=== PATIENT | male | born 1975 | race Caucasian/White ===

== ENCOUNTER 2020-11-06 06:40 | Emergency (ER) | payer OTHER, MEDICAID, SELFPAY ==
[2020-11-06 06:42] VITALS: BP 155/97; PULSE 61; RESP 18; TEMP 36.6; O2SAT 100; BMI 27.7
--- NOTE | 2020-11-06 07:23 | ED_ITS ---
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 He states that woke him from sleep early this morning and since that time has progressively worsened. He feels the pain in his left flank and down of the left side of his groin. He states that he felt like he did urinate this morning but could not. Has not any fevers. He states he has had ?many ?kidney stones in the past. He states he has lost count is down many he has had. He has passed them on his own and has also he did have lithotripsy and stent placement. Did not try anything for his symptoms prior to arrival. Related Data Previous Rx's Medication Instructions Recorded hydrocodone-acetaminophen [[place]] 1 tab PO Q4H PRN #10 tab 11/06/20 prochlorperazine maleate 10 mg PO Q6H PRN #10 tab 11/06/20 [Compazine] Allergies Allergy/AdvReac Type Severity Reaction Status Date / Time morphine Allergy Intermediate Vomiting Verified 11/06/20 07:12 Review of Systems Constitutional Constitutional: Denies fatigue, Denies fever(s) and Denies headache(s) ENT Ears, Nose, Mouth, and Throat: Denies headache(s) Cardiovascular Cardiovascular: Denies chest pain and Denies dyspnea Respiratory Respiratory: Denies dyspnea Gastrointestinal Gastrointestinal: Denies change in bowel habits and Reports nausea Comments: Left-sided abdominal pain Genitourinary Genitourinary: Reports urinary hesitancy and Reports urinary urgency Genitourinary: Reports urinary hesitancy and Reports urinary urgency Comments: Left-sided groin pain Musculoskeletal Musculoskeletal: Denies myalgias Integumentary/Breasts Skin/Breast: Denies rash Neurologic Neurologic: Denies behavioral changes and Denies headache(s) Psychiatric Psychiatric: Denies behavioral changes Endocrine Endocrine: Denies fatigue Hematologic/Lymphatic On Anticoagulants: No Allergic/Immunologic Allergic/Immunologic: Denies urticaria Patient History Medical History Funes sarcoma Kidney stones Social History Smoking Status: Never smoker Smoking Status: Never smoker alcohol intake frequency: 0-2 drinks per day Alcohol type: hard liquor Substance Use Type: marijuana Exam Initial Vital Signs Initial Vital Signs: Vital Signs Temperature 97.9 F 11/06/20 06:42 Pulse Rate 61 11/06/20 06:42 Respiratory Rate 18 11/06/20 06:42 Blood Pressure 155/97 H 11/06/20 06:42 Pulse Oximetry 100 11/06/20 06:42 Const General: cooperative and No comfortable Limitations: mental status not altered HENMT Head: normal to inspection and normocephalic Resp Effort & Inspection: normal respiratory effort Cardio Rate: regular rate GI Other: Minimal tenderness to palpation left sign Skin Lesions: no lesions Rashes: no rashes Neuro General: patient alert, patient awake and patient oriented x3 Extrem General: capillary refill normal Psych Appearance: grossly normal and well kempt Course Orders Ordered: ED Orders 11/06/20 06:44 Basic Metabolic Panel Stat Complete Blood Count AUTO DIFF Stat Discontinued Medications Acetaminophen (Acetaminophen 325 Mg Tablet) 975 mg PO NOW ONE Stop: 11/06/20 07:24 Last Admin: 11/06/20 07:34 Dose: 975 mg Documented by: KELLI Lidocaine HCl 7.1 ml/ Sodium (Chloride) 57.1 mls @ 342.6 mls/hr IV NOW ONE Stop: 11/06/20 07:24 Last Admin: 11/06/20 07:34 Dose: 342.6 mls/hr Documented by: KELLI Ketorolac Tromethamine (Ketorolac 60 Mg/2 Ml Vial) 30 mg IV NOW ONE Stop: 11/06/20 07:24 Last Admin: 11/06/20 07:33 Dose: 30 mg Documented by: KELLI Ondansetron HCl (Ondansetron 4 Mg/2 Ml Inj) 4 mg IV NOW ONE Stop: 11/06/20 07:24 Last Admin: 11/06/20 07:33 Dose: 4 mg Documented by: KELLI Vital Signs Vital signs: Vital Signs - 8 hr 11/06/20 06:42 Temperature 97.9 F Pulse Rate 61 Respiratory Rate 18 Blood Pressure 155/97 H Pulse Oximetry 100 Medical Decision Making Lab Data Lab results reviewed: Yes I reviewed the patient's lab results. Result diagrams: 11/06/20 06:44 11/06/20 06:44 Labs: Lab Results 11/06/20 11/06/20 Range/Units 06:44 06:44 WBC 6.0 (4.5-11.0) X10^3/uL RBC 4.52 (4.5-5.9) X10^6/uL Hgb 15.1 (13.5-17.5) g/dL Hct 43.1 (41-53) % MCV 95.3 (80-100) fL MCH 33.3 (26-34) PG MCHC 35.0 (30-36) % RDW 12.5 (11.6-14.8) % Plt Count 178 (150-400) X10^3/uL Neut % (Auto) 49.3 L (50-75) % Lymph % (Auto) 35.6 (25-40) % [place] % (Auto) 12.6 (3-14) % Eos % (Auto) 2.1 (2-4) % Baso % (Auto) 0.4 (0-2) % Neut # (Auto) 2900 (2909-0059) /uL Lymph # (Auto) 2100 (1795-9853) /uL [place] # (Auto) 800 (0-900) /uL Eos # (Auto) 100 (0-450) /uL Baso # (Auto) 0 (0-100) /uL Sodium 137 (137-145) mmol/L Potassium 3.9 (3.4-5.1) mmol/L Chloride 105 (98-107) mmol/L Carbon Dioxide 27 (22-32) mmol/L BUN 23 H (9-20) mg/dL Creatinine 1.26 H (0.66-1.25) mg/dL Estimated GFR > 60.0 (>60) mL/min BUN/Creatinine Ratio 18.3 (6-22) Glucose 107 H (70-100) mg/dL Calcium 9.9 (8.4-10.2) mg/dL Urine Dip Bedside Urine Glucose Negative Bedside Urine Bilirubin - Negative Bedside Urine Ketone - Negative Urine Specific [place] 1.015 Bedside Urine Occult Blood +++ Bedside Urine pH 7.5 Bedside Urine Protein - Negative Bedside Urine Urobilinogen - Negative Bedside Urine Nitrite - Negative Bedside Urine Leukocytes - Negative Esterase Point of care testing: Urine Dip Bedside Urine Glucose Negative Bedside Urine Bilirubin - Negative Bedside Urine Ketone - Negative Urine Specific [place] 1.015 Bedside Urine Occult Blood +++ Bedside Urine pH 7.5 Bedside Urine Protein - Negative Bedside Urine Urobilinogen - Negative Bedside Urine Nitrite - Negative Bedside Urine Leukocytes - Negative Esterase MDM Narrative Medical decision making narrative: Patient does have a slight bump in his creatinine however not all that concerning in my opinion. His urine shows blood but no other signs of infection. His pain is controlled with the above treatments here in the ER. He is afebrile. Had a discussion with him and the plan will be is to hold on a CT scan for now to avoid the radiation exposure is he has had multiple CT scans in the past and his symptoms today are fairly consistent with stone. Will send home with symptom treatment. He was given return precautions and follow-up instructions. He expressed understanding and agreement. Discharge Plan Departure Patient Disposition: Home Clinical Impression: Renal colic on left side Instructions: Kidney Stones -- Adult Activity Restrictions/Additional Instructions: Prescriptions for medications were electronically transmitted to [facility]. Please take them as directed. Contact your primary provider for follow-up. Return to the emergency department for any new or worsening symptoms like we discussed. Prescriptions: New hydrocodone-acetaminophen [[place]] 5-325 mg tablet 1 tab PO Q4H PRN (Reason: pain) Qty: 10 RF: 0 prochlorperazine maleate [Compazine] 10 mg tablet 10 mg PO Q6H PRN (Reason: nausea and vomiting) Qty: 10 RF: 0
[2020-11-06] MEDS: KETOROLAC 60 MG/2 ML VIAL 30 MG IV (07:33)
[2020-11-06] MEDS: ONDANSETRON 4 MG/2 ML INJ IV (07:33)
[2020-11-06] MEDS: ACETAMINOPHEN 325 MG TABLET 975 MG PO (07:34)
[2020-11-06] MEDS: LIDOCAINE 2% 7.1 ML in SODIUM CHLORIDE 0.9% 50 ML 342.6 ML IV (07:34)
[2020-11-06 07:37] LABS: Add Manual Diff / Slide Review NO; Basophils Absolute Auto 0 /uL (0-100); Basophils Percent Auto 0.4 % (0-2); Eosinophils Absolute Auto 100 /uL (0-450); Eosinophils Percent Auto 2.1 % (2-4); Hematocrit 43.1 % (41-53); Hemoglobin 15.1 g/dL (13.5-17.5); Lymphocytes Absolute Auto 2100 /uL (1100-4500); Lymphocytes Percent Auto 35.6 % (25-40); Mean Corpuscular Hemoglobin 33.3 PG (26-34); Mean Corpuscular Volume 95.3 fL (80-100); Monocytes Absolute Auto 800 /uL (0-900); Monocytes Percent Auto 12.6 % (3-14); Neutrophils Absolute Auto 2900 /uL (1500-7000); Neutrophils Percent Auto 49.3 % (50-75); Platelet Count 178 X10^3/uL (150-400); Red Blood Cell Count 4.52 X10^6/uL (4.5-5.9); Red Cell Distribution Width 12.5 % (11.6-14.8)
[2020-11-06 07:38] LABS: BUN Creatinine Ratio 18.3 (6-22); Blood Urea Nitrogen 23 mg/dL (9-20); Calcium 9.9 mg/dL (8.4-10.2); Carbon Dioxide 27 mmol/L (22-32); Chloride 105 mmol/L (98-107); Estimated Glomerular Filt Rate > 60.0 mL/min (>60); Glucose 107 mg/dL (70-100); HEMOLYSIS 15 (0-50); Potassium 3.9 mmol/L (3.4-5.1); Sodium 137 mmol/L (137-145)
[2020-11-06 08:30] VITALS: BP 137/86; PULSE 56; RESP 24; O2SAT 96
[2020-11-06 09:00] VITALS: BP 133/87; PULSE 52; RESP 22; O2SAT 99
[2020-11-06 09:30] VITALS: BP 117/82; PULSE 61; RESP 20; O2SAT 99
== END 2020-11-06 09:48 | disposition home or self-care (01) ==
PROVIDERS: Emergency Provider Emergency Medicine
DX: N23 Unspecified renal colic (principal); R39.15 Urgency of urination; Z87.442 Personal history of urinary calculi; Z85.830 Personal history of malignant neoplasm of bone
CPT/HCPCS: 36415; 80048; 81003; 85025; 96365; 96366; 96375; 99281; 99284; J1885; J2405

== ENCOUNTER 2020-11-30 12:06 | Emergency (ER) | payer OTHER, MEDICAID, SELFPAY ==
[2020-11-30 12:19] VITALS: BP 147/93; PULSE 60; RESP 18; TEMP 36.2; O2SAT 99
[2020-11-30 13:17] LABS: Add Manual Diff / Slide Review NO; Basophils Absolute Auto 0 /uL (0-100); Basophils Percent Auto 0.5 % (0-2); Eosinophils Absolute Auto 100 /uL (0-450); Eosinophils Percent Auto 1.5 % (2-4); Hematocrit 42.8 % (41-53); Hemoglobin 14.6 g/dL (13.5-17.5); Lymphocytes Absolute Auto 1500 /uL (1100-4500); Lymphocytes Percent Auto 28.3 % (25-40); Mean Corpuscular HGB Conc 34.1 % (30-36); Mean Corpuscular Volume 96.8 fL (80-100); Monocytes Absolute Auto 600 /uL (0-900); Monocytes Percent Auto 11.4 % (3-14); Neutrophils Absolute Auto 3100 /uL (1500-7000); Neutrophils Percent Auto 58.3 % (50-75); Platelet Count 163 X10^3/uL (150-400); Red Blood Cell Count 4.42 X10^6/uL (4.5-5.9); Red Cell Distribution Width 13.1 % (11.6-14.8); White Blood Cell Count 5.3 X10^3/uL (4.5-11.0)
--- NOTE | 2020-11-30 13:26 | DI.CT.S_ITS ---
PROCEDURE: CT KIDNEY URETER BLADDER (KUB) INDICATIONS: left side pain for over 1 wk, hx of multiple renal stones TECHNIQUE: Noncontrast 5 mm thick sections acquired from the diaphragms to the symphysis. 5 mm thick coronal and sagittal reformats were then performed. For radiation dose reduction, the following was used: automated exposure control, adjustment of mA and/or kV according to patient size. COMPARISON: None. FINDINGS: Image quality: Excellent. Lung bases: Left lower lobe, lingula and right middle lobe atelectasis. Heart size is normal. Small hiatal hernia. Urinary system: There are multiple left renal stones. There is a 11 mm stone at the left UPJ. There is mild left hydronephrosis and perinephric stranding. Mild left periureteral stranding is present. Multiple smaller nonobstructive stones are seen in left kidney, measuring 1-7 mm. Both kidneys are normal in size. No right kidney stones or hydronephrosis. There is a 1.5 cm low-density nodule in the left kidney, most likely a renal cyst. Both ureters appear non-dilated throughout their expected courses. Bladder wall thickness is normal; no calcified bladder stones. Prostate is mildly enlarged. Other solid organs: There is severe hepatic steatosis. Liver is normal in size. Gallbladder is normal . Pancreas is normal in contours. Spleen is normal in size. No adrenal nodules. Peritoneum and bowel: There are scattered colonic diverticula. No CT findings to suggest acute diverticulitis. Normal appendix. Unenhanced bowel loops demonstrate normal wall thickness and caliber. No free fluid or air. Nodes and vessels: No retroperitoneal or mesenteric adenopathy by size criteria. Aorta and inferior vena cava are normal in caliber. Abdominal wall: No ventral hernias. Pelvis: No free pelvic fluid. No inguinal adenopathy. There is a fat containing left inguinal hernia. Bones: No suspicious bony lesions. No vertebral body compression fractures. IMPRESSION: 1. Left nephrolithiasis. There is an 11 mm stone at the left UPJ. There is mild left hydronephrosis and perinephric stranding. 2. Diverticulosis without diverticulitis. 3. Hepatic steatosis. Dictated by: Xander Garcia M.D. on 11/30/2020 at 13:55 Approved by: Xander Garcia M.D. on 11/30/2020 at 14:43
[2020-11-30 13:28] LABS: BUN Creatinine Ratio 22.7 (6-22); Blood Urea Nitrogen 22 mg/dL (9-20); Calcium 9.1 mg/dL (8.4-10.2); Carbon Dioxide 29 mmol/L (22-32); Chloride 105 mmol/L (98-107); Estimated Glomerular Filt Rate > 60.0 mL/min (>60); Glucose 96 mg/dL (70-100); HEMOLYSIS 16 (0-50); Potassium 4.2 mmol/L (3.4-5.1); Sodium 136 mmol/L (137-145)
--- NOTE | 2020-11-30 13:29 | ED_ITS ---
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 Patient was evaluated in ED over 3 weeks ago with same discomfort. At that time, urine test showed 3+ occult blood without indications for infection. Patient reports pain has not moved since then and he is able to locate exact spot. Patient has been nauseated when pain is severe but no vomiting. He has been using Gates for pain management which ran out. He has been taking his own Flomax. Patient was on his way to ED today for recurring severe pain and rated as 7/10 but he had taken Midol before coming into ED and now pain subsided to 2/10. Describes pain like muscular cramps, aches. He denies fever, chills, flank pain. Patient denies hematuria. Otherwise denies other urinary symptoms such as urgency, frequency, dysuria. Denies unusual penile discharge, scrotal pain or swelling. Patient reports his abdomen has been bloated and not feeling well and initially thought it was due to using narcotic pain medication. Patient has an appointment with new PCP at the next week. Related Data Previous Rx's Medication Instructions Recorded hydrocodone-acetaminophen [Gates] 1 tab PO Q4H PRN #10 tab 11/06/20 prochlorperazine maleate 10 mg PO Q6H PRN #10 tab 11/06/20 [Compazine] hydrocodone-acetaminophen [Gates] 1 tab PO Q6H PRN #15 tab 11/30/20 tamsulosin [Flomax] 0.4 mg PO BEDTIME #14 cap 11/30/20 Allergies Allergy/AdvReac Type Severity Reaction Status Date / Time morphine Allergy Intermediate Vomiting Verified 11/30/20 12:22 Review of Systems <JOVITA Randolph - Last Filed: 11/30/20 15:49> Review of Systems Narrative: General: Denies fever, chills, fatigue, malaise, sweats. HEENT: Denies sinus pain, ear pain, sore throat, difficulty swallowing, d izziness. Respiratory: Denies dyspnea, cough, wheezing, hemoptysis, sputum. Cardiovascular: Denies chest pain, palpitations, orthopnea, edema. Gastrointestinal: See HPI : See HPI Musculoskeletal: Denies weakness, joint pain or bony pain. Skin: Denies rash, skin lesions, or other. Neurologic: Denies weakness, headache, numbness, change in speech, confusion, seizures, incoordination. Psychiatric: No concerning psychosocial issues. 12-point review of systems is negative except for those stated above. Patient History <JOVITA Randolph - Last Filed: 11/30/20 15:49> Medical History Funes sarcoma Kidney stones Social History Smoking Status: Never smoker Smoking Status: Never smoker alcohol intake frequency: 0-2 drinks per day Alcohol type: hard liquor Substance Use Type: marijuana Exam <JOVITA Randolph - Last Filed: 11/30/20 15:49> Narrative Exam Narrative: GEN: Alert, oriented x 3, well appearing and nourished, and in no acute distress. Head: Normal cephalic, atraumatic. No scalp or temporal tenderness, palpable mass or rash. EYES: Pupils are equal, round, and reactive to light and accommodation. Extraocular muscles are intact bilaterally. There is no subconjunctival hemorrhage, exudate and sclera non-icteric. ENT: Hearing grossly intact. Nose without bleeding, purulent discharge or deviation. Mucous membrane moist, no mucosal lesion. Throat without erythema, tonsillar hypertrophy or exudate. Uvula in midline, airway patent. Neck: Trachea in midline. No JVD, non-tender without lymphadenopathy. No masses or thyroid megaly. Supple, non-tender and no meningeal signs. CARDIAC: Normal regular rate and rhythm without murmurs, gallops, or rubs. No chest wall tenderness. No peripheral edema, cyanosis or pallor. Capillary refill is less than 2 seconds. RESPIRATORY: Lungs are clear to auscultate bilaterally. No cough, wheezes, rales, or rhonchi. No stridor, respiratory distress, increase work of breathing, or accessary muscle used. ABD: Abdomen soft and non-distended. Tenderness to palpate in left lower quadrant and epigastric region. No guarding or rebound tenderness to palpate. Bowel sounds are normal in all 4 quadrants. There is no palpable masses or organomegaly. EXT: Full painless ROM of all extremities with no loss of sensation, strength, effusion or edema. SKIN: Warm, dry, normal color for patient. No erythema, lesions or rash over visible areas. BACK: Nontender without deformity or crepitance. No flank tenderness. NEUROLOGICAL: Alert and oriented to place, time and person. Sensation and motor function intact bilaterally. No facial droops, dysphasia. PSYCHIATRIC: Good judgement and reason, without hallucinations, abnormal affect or abnormal behaviors during the examination. Patient is not suicidal. Initial Vital Signs Initial Vital Signs: Vital Signs Temperature 97.1 F L 11/30/20 12:19 Pulse Rate 60 11/30/20 12:19 Respiratory Rate 18 11/30/20 12:19 Blood Pressure 147/93 H 11/30/20 12:19 Pulse Oximetry 99 11/30/20 12:19 <King Perrin DO - Last Filed: 11/30/20 17:58> Initial Vital Signs Initial Vital Signs: Vital Signs Temperature 97.1 F L 11/30/20 12:19 Pulse Rate 60 11/30/20 12:19 Respiratory Rate 18 11/30/20 12:19 Blood Pressure 147/93 H 11/30/20 12:19 Pulse Oximetry 99 11/30/20 12:19 Scores <[facility] - Last Filed: 11/30/20 15:49> GCS Beata coma scale eye opening: Spontaneous [place] coma scale verbal response: Orientated Beata coma scale motor response: Obey commands [place] coma scale total score: 15 qSOFA Altered Mental Status (GCS <15): No Respiratory rate greater than/equal to 22: No Systolic blood pressure less than or equal to 100: No qSOFA Total: 0 0-1 Not High Risk 1-3 High risk Course <[facility] - Last Filed: 11/30/20 15:49> Orders Ordered: ED Orders 11/30/20 13:08 Basic Metabolic Panel Stat Complete Blood Count AUTO DIFF Stat 11/30/20 13:26 CT kidney ureter bladder (KUB) Stat 11/30/20 15:20 Urine Culture Stat Urine Microscopic Stat Discontinued Medications Hydromorphone HCl (Hydromorphone 0.5 Mg Inj) 0.5 mg IV NOW ONE Stop: 11/30/20 15:27 Last Admin: 11/30/20 15:32 Dose: 0.5 mg Documented by: KRYSTA Sodium Chloride (Normal Saline 0.9%) 1,000 mls @ 150 mls/hr IV CONT AYAKA Last Infusion: 11/30/20 16:01 Dose: 0 mls/hr Documented by: Admin: 11/30/20 14:17 Dose: 150 mls/hr Documented by: KRYSTA Ketorolac Tromethamine (Ketorolac 60 Mg/2 Ml Vial) 15 mg IV NOW ONE Stop: 11/30/20 13:29 Last Admin: 11/30/20 14:18 Dose: 15 mg Documented by: KRYSTA Ondansetron HCl (Ondansetron 4 Mg/2 Ml Inj) 4 mg IV NOW ONE Stop: 11/30/20 13:29 Last Admin: 11/30/20 14:18 Dose: 4 mg Documented by: KRYSTA Vital Signs Vital signs: Vital Signs - 8 hr 11/30/20 12:19 11/30/20 14:33 11/30/20 15:52 Temperature 97.1 F L Pulse Rate 60 52 L 52 L Respiratory Rate 18 14 20 Blood Pressure 147/93 H 129/80 146/83 H Pulse Oximetry 99 98 100 11/30/20 16:05 Temperature Pulse Rate 57 L Respiratory Rate 20 Blood Pressure 148/83 H Pulse Oximetry 100 <King Perrin DO - Last Filed: 11/30/20 17:58> Orders Ordered: ED Orders 11/30/20 13:08 Basic Metabolic Panel Stat Complete Blood Count AUTO DIFF Stat 11/30/20 13:26 CT kidney ureter bladder (KUB) Stat 11/30/20 15:20 Urine Culture Stat Urine Microscopic Stat Discontinued Medications Hydromorphone HCl (Hydromorphone 0.5 Mg Inj) 0.5 mg IV NOW ONE Stop: 11/30/20 15:27 Last Admin: 11/30/20 15:32 Dose: 0.5 mg Documented by: CVANCE Sodium Chloride (Normal Saline 0.9%) 1,000 mls @ 150 mls/hr IV CONT AYAKA Last Infusion: 11/30/20 16:01 Dose: 0 mls/hr Documented by: Admin: 11/30/20 14:17 Dose: 150 mls/hr Documented by: CVANCE Ketorolac Tromethamine (Ketorolac 60 Mg/2 Ml Vial) 15 mg IV NOW ONE Stop: 11/30/20 13:29 Last Admin: 11/30/20 14:18 Dose: 15 mg Documented by: CVANCE Ondansetron HCl (Ondansetron 4 Mg/2 Ml Inj) 4 mg IV NOW ONE Stop: 11/30/20 13:29 Last Admin: 11/30/20 14:18 Dose: 4 mg Documented by: CVANCE Vital Signs Vital signs: Vital Signs - 8 hr 11/30/20 12:19 11/30/20 14:33 11/30/20 15:52 Temperature 97.1 F L Pulse Rate 60 52 L 52 L Respiratory Rate 18 14 20 Blood Pressure 147/93 H 129/80 146/83 H Pulse Oximetry 99 98 100 11/30/20 16:05 Temperature Pulse Rate 57 L Respiratory Rate 20 Blood Pressure 148/83 H Pulse Oximetry 100 MDM - Male Genitourinary <JOVITA Randolph - Last Filed: 11/30/20 15:49> Differential Diagnosis Differential diagnosis: Likely acute retention of urine and other (Renal stone, pyelonephritis, STEVENSON, diverticulitis) Medical Records Attestation: I reviewed the patient's medical records. Lab Data Attestation: I reviewed the patient's lab results. Result diagrams: 11/30/20 13:08 11/30/20 13:08 Labs: Lab Results 11/30/20 11/30/20 11/30/20 Range/Units 13:08 13:08 15:20 WBC 5.3 (4.5-11.0) X10^3/uL RBC 4.42 L (4.5-5.9) X10^6/uL Hgb 14.6 (13.5-17.5) g/dL Hct 42.8 (41-53) % MCV 96.8 (80-100) fL MCH 33.0 (26-34) PG MCHC 34.1 (30-36) % RDW 13.1 (11.6-14.8) % Plt Count 163 (150-400) X10^3/uL Neut % (Auto) 58.3 (50-75) % Lymph % (Auto) 28.3 (25-40) % Clay % (Auto) 11.4 (3-14) % Eos % (Auto) 1.5 L (2-4) % Baso % (Auto) 0.5 (0-2) % Neut # (Auto) 3100 (9880-3440) /uL Lymph # (Auto) 1500 (0707-0247) /uL Clay # (Auto) 600 (0-900) /uL Eos # (Auto) 100 (0-450) /uL Baso # (Auto) 0 (0-100) /uL Sodium 136 L (137-145) mmol/L Potassium 4.2 (3.4-5.1) mmol/L Chloride 105 (98-107) mmol/L Carbon Dioxide 29 (22-32) mmol/L BUN 22 H (9-20) mg/dL Creatinine 0.97 (0.66-1.25) mg/dL Estimated GFR > 60.0 (>60) mL/min BUN/Creatinine Ratio 22.7 H (6-22) Glucose 96 (70-100) mg/dL Calcium 9.1 (8.4-10.2) mg/dL Urine RBC None seen (0-5/HPF) Urine WBC 5-10/hpf H (0-5/HPF) Urine Bacteria None seen (None) Urine Mucus 2+ H (Negative) Ur Culture Indicated? Culture not indicate Urine Dip Bedside Urine Glucose Negative Bedside Urine Bilirubin - Negative Bedside Urine Ketone +/- 5 Urine Specific [place] 1.015 Bedside Urine Occult Blood + Bedside Urine pH 7.0 Bedside Urine Protein +/- 15 Bedside Urine Urobilinogen - Negative Bedside Urine Nitrite - Negative Bedside Urine Leukocytes - Negative Esterase Imaging Data CT-KUB: Radiologist's Impression: [address] [id number] Scan ReportSigned Patient: Marvin Seth TMR#: [id number]: 1975Acct:[id number]/Sex: 45 / MDate of Service: 11/30/20Loc: EDAccession Number: [id number] Procedure: CT kidney ureter bladder (KUB) Ordering Provider: Scott Rushing PROCEDURE: CT KIDNEY URETER BLADDER (KUB) INDICATIONS: left side pain for over 1 wk, hx of multiple renal stones TECHNIQUE: Noncontrast 5 mm thick sections acquired from the diaphragms to the symphysis. 5 mm thick coronal and sagittal reformats were then performed. For radiation dose reduction, the following was used: automated exposure control, adjustment of mA and/or kV according to patient size. COMPARISON: None. FINDINGS: Image quality: Excellent. Lung bases: Left lower lobe, lingula and right middle lobe atelectasis. Heart size is normal. Small hiatal hernia. Urinary system: There are multiple left renal stones. There is a 11 mm stone at the left UPJ. There is mild left hydronephrosis and perinephric stranding. Mild left periureteral stranding is present. Multiple smaller nonobstructive stones are seen in left kidney, measuring 1-7 mm. Both kidneys are normal in size. No right kidney stones or hydronephrosis. There is a 1.5 cm low-density nodule in the left kidney, most likely a renal cyst. Both ureters appear non-dilated throughout their expected cours es. Bladder wall thickness is normal; no calcified bladder stones. Prostate is mildly enlarged. Other solid organs: There is severe hepatic steatosis. Liver is normal in size. Gallbladder is normal . Pancreas is normal in contours. Spleen is normal in size. No adrenal nodules. Peritoneum and bowel: There are scattered colonic diverticula. No CT findings to suggest acute diverticulitis. Normal appendix. Unenhanced bowel loops demonstrate normal wall thickness and caliber. No free fluid or air. Nodes and vessels: No retroperitoneal or mesenteric adenopathy by size criteria. Aorta and inferior vena cava are normal in caliber. Abdominal wall: No ventral hernias. Pelvis: No free pelvic fluid. No inguinal adenopathy. There is a fat containing left inguinal hernia. Bones: No suspicious bony lesions. No vertebral body compression fractures. IMPRESSION: 1. Left nephrolithiasis. There is an 11 mm stone at the left UPJ. There is mild left hydronephrosis and perinephric stranding. 2. Diverticulosis without diverticulitis. 3. Hepatic steatosis. Dictated by: Xander Garcia M.D. on 11/30/2020 at 13:55 Approved by: Xander Garcia M.D. on 11/30/2020 at 14:43 MDM Narrative Medical decision making narrative: This is a 45-year-old male who has numerous renal stone history presents to ED with chief complain of left side/upper abdomen discomfort for last 3 weeks and this is his 2nd visit to ED. patient reports had 3 lithotripsy to remove left renal stones in the past and seems as he is able to pass right renal stones without surgical interventions in the past. Patient has nausea but no vomiting. Patient denies hematuria or other urinary symptoms. During last visit, imaging test was deferred since it felt as typical renal stone pain. At that time, urine tests, CBC, BMP obtained. Labs on 11/06/20 showed slightly increased Cr if 1.26 but normal eGFR and no leuko cytosis. Urine test was positive for 3+ blood without leuks or nitrites. Labs today shows assuring findings without leukocytosis and normal creatinine of 0.97 and eGFR. Patient agreed with KUB CT test since pain has been at the same location and concerns for a large renal stone that may require another lithotripsy procedure. CT KUB indicates a large renal stone measuring 11 mm at left UPJ with multiple small nonobstructive stones in left kidney measuring 1-7 mm with mild hydronephrosis and perinephric stranding. There is a 1.5 cm low density nodule in the left kidney likely renal cyst. Both ureter are nondilated. There are several diverticulosis without active diverticulitis and incidental finding of hepatics steatosis. Discussed the CT and lab findings with the patient. Urine POC test result no indiction for infection. Urine culture is pending. I discussed with patient to follow-up with Dr. Johnston as soon as possible by calling his office to discuss possible lithotripsy and to use anti nausea, pain medication, and Flomax and patient verbalized understanding and agreement with the treatment plan. <King Perrin, DO - Last Filed: 11/30/20 17:58> Lab Data Labs: Lab Results 11/30/20 11/30/20 11/30/20 Range/Units 13:08 13:08 15:20 WBC 5.3 (4.5-11.0) X10^3/uL RBC 4.42 L (4.5-5.9) X10^6/uL Hgb 14.6 (13.5-17.5) g/dL Hct 42.8 (41-53) % MCV 96.8 (80-100) fL MCH 33.0 (26-34) PG MCHC 34.1 (30-36) % RDW 13.1 (11.6-14.8) % Plt Count 163 (150-400) X10^3/uL Neut % (Auto) 58.3 (50-75) % Lymph % (Auto) 28.3 (25-40) % Clay % (Auto) 11.4 (3-14) % Eos % (Auto) 1.5 L (2-4) % Baso % (Auto) 0.5 (0-2) % Neut # (Auto) 3100 (1693-6398) /uL Lymph # (Auto) 1500 (7408-4655) /uL Clay # (Auto) 600 (0-900) /uL Eos # (Auto) 100 (0-450) /uL Baso # (Auto) 0 (0-100) /uL Sodium 136 L (137-145) mmol/L Potassium 4.2 (3.4-5.1) mmol/L Chloride 105 (98-107) mmol/L Carbon Dioxide 29 (22-32) mmol/L BUN 22 H (9-20) mg/dL Creatinine 0.97 (0.66-1.25) mg/dL Estimated GFR > 60.0 (>60) mL/min BUN/Creatinine Ratio 22.7 H (6-22) Glucose 96 (70-100) mg/dL Calcium 9.1 (8.4-10.2) mg/dL Urine RBC None seen (0-5/HPF) Urine WBC 5-10/hpf H (0-5/HPF) Urine Bacteria None seen (None) Urine Mucus 2+ H (Negative) Ur Culture Indicated? Culture not indicate Urine Dip Bedside Urine Glucose Negative Bedside Urine Bilirubin - Negative Bedside Urine Ketone +/- 5 Urine Specific [place] 1.015 Bedside Urine Occult Blood + Bedside Urine pH 7.0 Bedside Urine Protein +/- 15 Bedside Urine Urobilinogen - Negative Bedside Urine Nitrite - Negative Bedside Urine Leukocytes - Negative Esterase Discharge Plan Departure Patient Disposition: Home Clinical Impression: Left renal stone Instructions: DI for Kidney Stones Activity Restrictions/Additional Instructions: You have been diagnosed with [left-sided renal stones. The largest measuring as 11 mm in Left UPJ and several smaller stones measuring from 1-7 mm with mild hydronephrosis and perinephric stranding. Urine does not appears to having on infection. Labs assuring with normal kidney function test. However, urine is being cultured at this time.]. What to do: *Take your medications as directed. Please use Compazine that you have as needed for nausea. Gates for severe pain management. You can take over-the- counter Tylenol and or Motrin as needed for mild to moderate pain. Gates can cause constipation so please take precautions such as increasing oral fluid intake, fiber in her diet, and stool softener. It can cause drowsiness so please do not drive, drink alcohol, or operate heavy equipments. Please use Flomax daily at night. This medication have been transmitted to [facility] in [place]. *Follow up with your primary care provider in 2-3 days, call for an appointment. Please contact Dr. Johnston to set up a follow up appointment for possible lithotripsy. Let them know you were seen in the ED and that we asked you to be seen in follow up. *Return to ED if you have any new, worsening, or concerning symptoms, such as [chest pain, breathing difficulty, unable to tolerate fluids, fever, symptoms for urinary retention, or any acute concerns]. Prescriptions: New hydrocodone-acetaminophen [Gates] 5-325 mg tablet 1 tab PO Q6H PRN (Reason: pain) Qty: 15 RF: 0 tamsulosin [Flomax] 0.4 mg capsule 0.4 mg PO BEDTIME Qty: 14 RF: 0 No Action hydrocodone-acetaminophen [Gates] 5-325 mg tablet 1 tab PO Q4H PRN (Reason: pain) Qty: 10 RF: 0 prochlorperazine maleate [Compazine] 10 mg tablet 10 mg PO Q6H PRN (Reason: nausea and vomiting) Qty: 10 RF: 0 Referrals: Collins Fox MD [Primary Care Provider] - Carl Johnston MD [Physician] - <King Perrin, - Last Filed: 11/30/20 17:58> Cosign ED Attending Cosignature Attestation: Dr Perrin Co-Sign Statement: I was available for consultation during this patient's emergency department visit. This chart is signed by myself for administrative purposes only. I did not have direct contact with this patient during this visit. They were seen independently by the APC.
[2020-11-30] MEDS: SODIUM CHLORIDE 0.9% 1,000 ML 150 ML IV (14:17)
[2020-11-30] MEDS: KETOROLAC 60 MG/2 ML VIAL 15 MG IV (14:18)
[2020-11-30] MEDS: ONDANSETRON 4 MG/2 ML INJ IV (14:18)
[2020-11-30 14:33] VITALS: BP 129/80; PULSE 52; RESP 14; O2SAT 98
[2020-11-30] MEDS: HYDROMORPHONE 0.5 MG INJ IV (15:32)
[2020-11-30 15:52] VITALS: BP 146/83; PULSE 52; RESP 20; O2SAT 100
[2020-11-30 16:00] LABS: Bacteria Urine None Seen; RBC Urine None Seen (0-5/HPF)
[2020-11-30 16:05] VITALS: BP 148/83; PULSE 57; RESP 20; O2SAT 100
[2020-11-30 16:25] LABS: Mucus Urine 2+ (Negative); WBC Urine 5-10/HPF (0-5/HPF)
== END 2020-11-30 16:05 | disposition home or self-care (01) ==
PROVIDERS: Emergency Medicine; Emergency Provider Nurse Practitioner Family; PCP Student in an Organized Health Care Education/Training Program
DX: N20.0 Calculus of kidney (principal); Z87.442 Personal history of urinary calculi; C41.3 Malignant neoplasm of ribs, sternum and clavicle; R11.0 Nausea; R79.89 Other specified abnormal findings of blood chemistry
CPT/HCPCS: 36415; 74176; 80048; 81003; 81015; 85025; 87086; 96361; 96374; 96375; 99283; 99284; J1170; J1885; J2405

== ENCOUNTER → 2020-12-03 14:59 | Outpatient (CLI) | payer OTHER, MEDICAID, SELFPAY ==
[2020-12-03 16:05] LABS: Liquefaction Semen YES (YES)
[2020-12-03 16:06] LABS: PH Semen 8.5 (7-8); Sperm Count 20 x10^6/mL (20-150); Sperm Morphology 30 %ABNORM (0-30); Sperm Motility 80% % Motile
== END ==
PROVIDERS: PCP Student in an Organized Health Care Education/Training Program; Referring Provider Student in an Organized Health Care Education/Training Program; Visit Provider Student in an Organized Health Care Education/Training Program
DX: N46.9 Male infertility, unspecified (principal); Z09 Encounter for follow-up examination after completed treatment for conditions other than malignant neoplasm
CPT/HCPCS: 89320

== ENCOUNTER → 2020-12-12 11:16 | Outpatient (CLI) | payer OTHER, MEDICAID, SELFPAY ==
--- NOTE | 2020-12-12 11:17 | DI.RAD.S_ITS ---
PROCEDURE: XR KUB INDICATIONS: Kidney stones TECHNIQUE: One view of the abdomen acquired. COMPARISON: None. FINDINGS: Surgical changes and devices: None. Bowel: Bowel gas pattern is normal. Soft tissues: Multiple calcifications are seen projecting in the region of left kidney and measures up to 1.1 cm in size. Likely phleboliths are seen in bilateral lower pelvis. Visualized solid organ contours appear normal in size. Bones: No suspicious bony lesions. IMPRESSION: Multiple left renal calculi as above. Likely phleboliths in lower pelvis. No gross free air. Dictated by: Jimmie Peña M.D. on 12/12/2020 at 13:34 Approved by: Jimmie Peña M.D. on 12/12/2020 at 13:37
== END ==
PROVIDERS: PCP Student in an Organized Health Care Education/Training Program; Referring Provider Specialist; Visit Provider Specialist
DX: N20.0 Calculus of kidney (principal)
CPT/HCPCS: 74018

== ENCOUNTER → 2020-12-26 11:11 | Outpatient (CLI) | payer OTHER, MEDICAID, SELFPAY ==
[2020-12-26 11:51] LABS: COVID19 -Nasal RAPID Negative (Negative)
== END ==
PROVIDERS: PCP Student in an Organized Health Care Education/Training Program; Visit Provider Specialist
DX: Z20.822 Contact with and (suspected) exposure to COVID-19 (principal)
CPT/HCPCS: 87635; C9803

== ENCOUNTER 2020-12-28 06:30 | Day surgery (SDC) | payer OTHER, MEDICAID, SELFPAY ==
[2020-12-28] VITALS (11 sets, daily range): BP systolic 110–132; BP diastolic 67–91; PULSE 50–63; RESP 10–97; TEMP 35.8–36.9; O2SAT 14–100; BMI 28.3
--- NOTE | 2020-12-28 07:42 | PM.PREOP ---
Pre-operative Note Interval Note History & Physical reviewed/Exam performed by Physician: Yes Changes to H&P: No
[2020-12-28] MEDS: LACTATED RINGERS 1,000 ML 42 ML IV (07:45)
[2020-12-28] MEDS: CEFAZOLIN 2 GM/100 ML FROZ.PIGGY IV (07:45)
--- NOTE | 2020-12-28 08:11 | SUR.OPER ---
Lithotomy on lithotripsy sling table, head on pillow, arms padded at sides at <90 degrees abduction. Legs secured in padded stirrups.
--- NOTE | 2020-12-28 08:59 | P.OP_ITS ---
Operative Date/Time/Diagnoses Date of procedure: 12/28/20 Time of procedure: 08:59 Pre-op diagnosis: Obstructing 1.2 cm left UPJ calculus Left nephrolithiasis Post-op diagnosis: same Procedure & Clinicians Procedure: 1. Cystoscopy placement left ureteral stent (8 [place] by 22-32 cm multi-length). 2. Left extracorporeal shockwave lithotripsy. Same procedure as scheduled: Yes Indications: 1. Obstructing 1.2 cm left ureteropelvic junction calculus. 2. Left nephrolithiasis. Surgeon: Carl Johnston Click Yes if Unassisted: Yes Anesthesia Type: General Operative Notes Findings: 1. Urethra- normal caliber without lesion or annular stricture. 2. External sphincter-coapted with normal overlying urothelium. 3. Nndvkucl-9-0.5 cm length with mild lateral lobe hyperplasia. 4. Bladder-1+ trabeculation with normal ureteral orifices bilaterally. No evidence of stone or tumor. Closure Type: not applicable Specimen(s): none sent Applied: other (A [place] by 22-32 cm multi-length.) Estimated Blood Loss (mL): 0 Blood products transfused: none Procedure in detail: The patient is positioned in supine and was administered general anesthesia. He was then repositioned in semi lithotomy and the lower abdomen, genitalia, and groin were then prepped and draped in sterile fashion. The 22 [place] panendoscope was then passed and lower urinary tract with the findings as described above. A 0.35 hybrid guidewire was then advanced in the left collecting system under direct and fluoroscopic guidance. Over this an 8 [place] by 22-32 cm multi-length stent was again advanced over the wire under direct and fluoroscopic guidance. The patient was then repositioned in supine and the index left ureteral pelvic junction calculus was localized in the X line Z plane. Lithotripsy was then commenced at minimal power level for a total of 200 shocks. A 2 minutes pause was then conducted. Lithotripsy was then resumed and the stone and its fragments were really localize as necessary. A 2nd, nonobstructing 8 mm ureteral calculus was also localized in the XYZ plane and was treated in the same manner. A total 2000 shocks was excellent radiographic evidence of stone comminution. Treatment was halted and the patient was then awakened, transferred to [facility], and transferred to recovery. Complications: none Post-operative Condition: stable Disposition: PACU Plan for aftercare: Discharge home
[2020-12-28] MEDS: fentaNYL 100 MCG/2 ML INJ IV ×3 (09:24→10:46)
[2020-12-28] MEDS: FUROSEMIDE 20 MG/2 ML VIAL IV (09:29)
[2020-12-28] MEDS: OXYCODONE IR 5 MG TABLET PO ×2 (09:36→10:29)
--- NOTE | 2020-12-28 10:33 | SUR.PHASEII ---
Pt writhing in pain, voided bloody urine, stained, small clots no stones. Pt placed on monitor, fentanyl given along with 2nd oxycodone.
--- NOTE | 2020-12-28 10:57 | SUR.PHASEII ---
2nd dose of fentanyl given,pt feeling much better, 2nd void no stones.
--- NOTE | 2020-12-28 11:14 | SUR.PHASEII ---
Pain still not tolerable 02/11, spoke with Dr. Contreras, new orders recieved, Tylenol 650mg po and torodol
[2020-12-28] MEDS: ACETAMINOPHEN 325 MG TABLET PO ×2 (11:19→11:42)
[2020-12-28] MEDS: KETOROLAC 30 MG/ML VIAL IV (11:20)
--- NOTE | 2020-12-28 11:43 | SUR.PHASEII ---
Report to HENNY Clark
--- NOTE | 2020-12-28 11:43 | SUR.PHASEII ---
monitored VS on paper flow sheet.
[2020-12-28] MEDS: BELLADONNA/OPIUM SUPPOSITORIES 1 EACH PR (12:22)
--- NOTE | 2020-12-28 12:24 | SUR.PHASEII ---
Pt rates pain 6/10, sharp in the kidney. Chose to insert the B&O suppository himself and desires to go home. His ride is here. Denies nausea. VSS.
--- NOTE | 2020-12-28 12:34 | SUR.PHASEII ---
IV dc'd, clothing given
--- NOTE | 2020-12-28 13:13 | SUR.PHASEII ---
1220 late entry Patient ambulated to the bathroom and voided. In obvious discomfort when walking back to the bed, leaning forward, moving slowly, facial grimace. Explained B&O suppository to him. 1245 [address] in wheelchair, states that pain has gone down to a 3 and that he is doing much better. Has supplies to continue straining urine. This is his 4th kidney stone intervention and he is very comfortable with what to do. No questions/concerns.
--- NOTE | 2020-12-28 13:19 | SUR.PHASEII ---
Stone fragments to the lab; I had difficulty in ordering, asked them to correct it.
== END 2020-12-28 12:45 | disposition home or self-care (01) ==
PROVIDERS: PCP Student in an Organized Health Care Education/Training Program; Referring Provider Student in an Organized Health Care Education/Training Program; Visit Provider Specialist
PROC: (CPT 50590; principal; 2020-12-28 07:45)
PROC: (CPT 50590; 2020-12-28 07:45)
DX: N20.2 Calculus of kidney with calculus of ureter (principal); Z87.442 Personal history of urinary calculi; J45.909 Unspecified asthma, uncomplicated
CPT/HCPCS: 50590; 52332; 82365; J0690; J1100; J1885; J1940; J2405; J2704; J3010

== ENCOUNTER 2021-01-02 15:47 | Emergency (ER) | payer OTHER, MEDICAID, SELFPAY ==
[2021-01-02] VITALS (10 sets, daily range): BP systolic 125–148; BP diastolic 70–96; PULSE 53–78; RESP 16–30; TEMP 36.6; O2SAT 98–100
[2021-01-02] MEDS: KETOROLAC 60 MG/2 ML VIAL 30 MG IM (15:59)
--- NOTE | 2021-01-02 16:45 | DI.CT.S_ITS ---
PROCEDURE: CT KIDNEY URETER BLADDER (KUB) INDICATIONS: recent stents removed (per payal) TECHNIQUE: Noncontrast 5 mm thick sections acquired from the diaphragms to the symphysis. 5 mm thick coronal and sagittal reformats were then performed. For radiation dose reduction, the following was used: automated exposure control, adjustment of mA and/or kV according to patient size. COMPARISON: [facility], CT, CT KIDNEY URETER BLADDER (KUB), 11/30/2020, 13:44. [facility], CR, XR KUB, 12/12/2020, 11:18. FINDINGS: Image quality: Excellent. Lung bases: Lung bases are clear. Heart size is normal. Urinary system: There is a series of stones seen obstructing within the distal left ureter, with the largest stone fragment measuring approximately 6 mm, although with the stone fragments spanning 2.5 cm craniocaudal. There is associated mild to moderate left-sided hydroureter and hydronephrosis. Mild left perinephric fat stranding can also be seen. Within the left kidney, nonobstructing stone fragments are seen, which measure up to 1 cm. No definite stone fragments are seen on the right side. No right-sided hydronephrosis can be seen. Both kidneys are normal in size. Both ureters appear non-dilated throughout their expected courses. Bladder wall thickness is normal; no calcified bladder stones. Other solid organs: Liver is normal in size. Gallbladder wall is not thickened. Pancreas is normal in contours. Spleen is normal in size. No adrenal nodules. Peritoneum and bowel: Unenhanced bowel loops demonstrate normal wall thickness and caliber. No free fluid or air. A normal appendix is incidentally noted. Colonic diverticulosis is seen, without findings of active diverticulitis. Nodes and vessels: No retroperitoneal or mesenteric adenopathy by size criteria. Aorta and inferior vena cava are normal in caliber. Abdominal wall: No ventral hernias. Pelvis: No free pelvic fluid. No enlarged inguinal or pelvic lymph nodes are seen. There is a fat-containing left inguinal hernia seen. Bones: No suspicious bony lesions. No vertebral body compression fractures. IMPRESSION: Obstructing stone fragments seen within the distal left ureter, with associated left-sided hydroureter, hydronephrosis, and perinephric fat stranding. Nonobstructing left-sided kidney stones are also seen. Incidental note is made of: Normal appendix Diverticulosis, without active diverticulitis Fat containing left inguinal hernia Dictated by: Shant Patiño M.D. on 01/02/2021 at 16:02 Approved by: Shant Patiño M.D. on 01/02/2021 at 16:06
[2021-01-02 19:38] LABS: Add Manual Diff / Slide Review NO; Basophils Absolute Auto 0 /uL (0-100); Basophils Percent Auto 0.3 % (0-2); Eosinophils Absolute Auto 200 /uL (0-450); Hematocrit 41.5 % (41-53); Hemoglobin 14.2 g/dL (13.5-17.5); Lymphocytes Absolute Auto 1400 /uL (1100-4500); Mean Corpuscular HGB Conc 34.1 % (30-36); Mean Corpuscular Hemoglobin 33.2 PG (26-34); Mean Corpuscular Volume 97.3 fL (80-100); Monocytes Absolute Auto 900 /uL (0-900); Monocytes Percent Auto 11.8 % (3-14); Neutrophils Absolute Auto 5200 /uL (1500-7000); Neutrophils Percent Auto 66.9 % (50-75); Platelet Count 187 X10^3/uL (150-400); Red Blood Cell Count 4.27 X10^6/uL (4.5-5.9); Red Cell Distribution Width 12.6 % (11.6-14.8); White Blood Cell Count 7.8 X10^3/uL (4.5-11.0)
[2021-01-02] MEDS: LIDOCAINE 2% 7.1 ML in SODIUM CHLORIDE 0.9% 50 ML 342.6 ML IV (19:45)
[2021-01-02 19:56] LABS: Blood Urea Nitrogen 25 mg/dL (9-20); Calcium 9.7 mg/dL (8.4-10.2); Carbon Dioxide 27 mmol/L (22-32); Chloride 103 mmol/L (98-107); Estimated Glomerular Filt Rate > 60.0 mL/min (>60); Glucose 105 mg/dL (70-100); HEMOLYSIS < 15 (0-50); Potassium 4.3 mmol/L (3.4-5.1); Sodium 137 mmol/L (137-145)
[2021-01-02] MEDS: ONDANSETRON 4 MG/2 ML INJ IV (20:45)
[2021-01-02] MEDS: HYDROMORPHONE 1 MG INJ IV (20:45)
--- NOTE | 2021-01-02 20:53 | ED_ITS ---
HPI - Recheck/Abnormal Lab/Rx General Chief Complaint: Recheck/Abnormal Lab/Rx Stated Complaint: kidney pain s/p stent removal Time Seen by Provider: 01/02/21 17:53 Source: patient Mode of arrival: Ambulatory Limitations: no limitations History of Present Illness HPI narrative: 45-year-old male former smoker presents with his in the chief complaint of severe left lower quadrant pain. He was sent here by his urologist as he developed the this pain soon after a ureteral stent was removed. He was driving on his way home when he started having left lower quadrant pain that gradually build and became quite intense at which point they turned around to come back. He had nausea but no vomiting. The pain is sharp and stabbing, seems to be worse with motion and improves with rest. He denies any recent inju ry. He denies any change in bowel such as constipation or diarrhea. Symptoms since prior visit: worsening pain Associated symptoms: nausea Related Data Previous Rx's Medication Instructions Recorded prochlorperazine maleate 10 mg PO Q6H PRN #10 tab 11/06/20 [Compazine] albuterol sulfate 90 mcg/actuation 2 puff INHALATION Q6H PRN #6.7 g 12/03/20 aerosol inhaler hydrocodone 5 mg-acetaminophen 325 1 tab PO Q6H PRN #15 tab 12/11/20 mg tablet tamsulosin 0.4 mg capsule 0.4 mg PO BEDTIME #14 cap 12/13/20 oxycodone 5 mg PO Q4H PRN #20 tab 12/28/20 oxycodone 5 mg tablet 5 mg PO Q4H PRN #30 tab 01/02/21 tramadol [Ultram] 50 mg PO Q6H PRN #10 tab 01/02/21 Allergies Allergy/AdvReac Type Severity Reaction Status Date / Time morphine Allergy Intermediate Vomiting Verified 12/13/20 08:07 Review of Systems Constitutional Constitutional: Denies chills, Denies fatigue, Denies fever(s), Denies frequent falls, Denies lethargy and Denies weakness Eyes Eyes: Denies change in vision, Denies eye discharge, Denies irritation and Denies loss of vision ENT Ears, Nose, Mouth, and Throat: Denies change in voice, Denies dizziness, Denies neck pain, Denies sore throat and Denies throat swelling Cardiovascular Cardiovascular: Denies chest pain, Denies irregular heart rhythm, Denies lightheadedness, Denies palpitations, Denies dyspnea, Denies dyspnea on exertion and Denies orthopnea Respiratory Respiratory: Denies cough, Denies dyspnea, Denies dyspnea on exertion and Denies wheezing Gastrointestinal Gastrointestinal: Reports abdominal pain, Denies change in bowel habits, Denies diarrhea, Reports nausea and Denies vomiting Genitourinary Genitourinary: Reports flank pain Genitourinary: Reports flank pain Musculoskeletal Musculoskeletal: Denies neck pain and Denies numbness Integumentary/Breasts Skin/Breast: Denies pruritus, Denies erythema, Denies rash and Denies wounds Neurologic Neurologic: Denies behavioral changes, Denies confusion, Denies dizziness, Denies frequent falls, Denies loss of vision, Denies numbness and Denies weakness Psychiatric Psychiatric: Denies anxiety, Denies behavioral changes, Denies confusion, Denies depression, Denies homicidal ideation and Denies suicidal ideation Endocrine Endocrine: Denies fatigue, Denies flushing and Denies palpitations Hematologic/Lymphatic Hematologic/Lymphatic: Denies easy bruising Allergic/Immunologic Allergic/Immunologic: Denies urticaria, Denies throat swelling and Denies wheezing Patient History Medical History Arthritis Asthma Funes sarcoma History of nephrolithiasis Kidney stones Left nephrolithiasis Ureteral stent retained Surgical History H/O lithotripsy Social History marital status: number of children: 3 household members: significant other Smoking Status: Former smoker alcohol intake: current caffeine: Yes Smoking Status: Former smoker alcohol intake frequency: 0-2 drinks per day Alcohol type: hard liquor Substance Use Type: marijuana Exam Narrative Exam Narrative: GENERAL: [45] year old patient appears stated age. Well- nourished, well-developed patient, in moderate distress, obviously quite comfortable and rubbing his left lower side HEAD: Atraumatic. Normocephalic. EYES: Pupils equal round and reactive. Extraocular motions intact. No scleral icterus. No injection or drainage. ENT: Nose without bleeding, purulent drainage. Throat without erythema, tonsillar hypertrophy or exudate. Airway patent. NECK: Trachea midline. Non tender CARDIOVASCULAR: Regular rate and rhythm without murmurs, gallops, or rubs. RESPIRATORY: Clear to auscultation. Breath sounds equal bilaterally. No wheezes, rales, or rhonchi. GASTROINTESTINAL: Abdomen soft, non-tender, nondistended. EXTREMITIES: No edema or joint tenderness. BACK: Nontender without deformity or crepitance. No flank tenderness. NEURO: AOx3. SKIN: No rash or erythema of visible areas Initial Vital Signs Initial Vital Signs: Vital Signs Temperature 97.9 F 01/02/21 15:49 Pulse Rate 78 01/02/21 15:49 Respiratory Rate 30 H 01/02/21 15:49 Pulse Oximetry 99 01/02/21 15:49 Course Orders Ordered: Discontinued Medications Hydromorphone HCl (Hydromorphone 1 Mg Inj) 1 mg IV NOW ONE Stop: 01/02/21 20:43 Last Admin: 01/02/21 20:45 Dose: 1 mg Documented by: ELIZABETH Lidocaine HCl 7.1 ml/ Sodium (Chloride) 57.1 mls @ 342.6 mls/hr IV NOW ONE Stop: 01/02/21 19:41 Last Infusion: 01/02/21 20:16 Dose: 0 mls/hr Documented by: Admin: 01/02/21 19:45 Dose: 342.6 mls/hr Documented by: ELIZABETH Ketorolac Tromethamine (Ketorolac 60 Mg/2 Ml Vial) 30 mg IM NOW ONE Stop: 01/02/21 15:53 Last Admin: 01/02/21 15:59 Dose: 30 mg Documented by: MATHEW Ondansetron HCl (Ondansetron 4 Mg/2 Ml Inj) 4 mg IV NOW ONE Stop: 01/02/21 20:43 Last Admin: 01/02/21 20:45 Dose: 4 mg Documented by: ELIZABETH Tramadol HCl (Tramadol 50 Mg Prepack) 1 bottle MISC SEEINSTR ONE Stop: 01/02/21 22:12 Last Admin: 01/02/21 22:27 Dose: 1 bottle Documented by: MATHEW Reevaluation(s) Reevaluation #1: Initially some improvement with Toradol but upon return from CT his symptoms worsened, lidocaine drip ordered Reevaluation #2: Lidocaine seemed to help for some time but eventually pain ramped up again at which point a lot was given. Consultations Consultation #1: Discussed case with on-call Urology (Vickie) who recommended sending patient home with Ultram and reminding him to remain NPO after midnight in the event his symptoms worsen and he needs to go to the OR Vital Signs Vital signs: Vital Signs - 8 hr 01/02/21 22:00 Pulse Rate 53 L Blood Pressure 141/92 H Pulse Oximetry 99 MDM - Recheck/Abnormal Lab/Rx Lab Data Result diagrams: 01/02/21 19:32 01/02/21 19:32 Labs: Lab Results 01/02/21 01/02/21 Range/Units 19:32 19:32 WBC 7.8 (4.5-11.0) X10^3/uL RBC 4.27 L (4.5-5.9) X10^6/uL Hgb 14.2 (13.5-17.5) g/dL Hct 41.5 (41-53) % MCV 97.3 (80-100) fL MCH 33.2 (26-34) PG MCHC 34.1 (30-36) % RDW 12.6 (11.6-14.8) % Plt Count 187 (150-400) X10^3/uL Neut % (Auto) 66.9 (50-75) % Lymph % (Auto) 18.0 L (25-40) % [place] % (Auto) 11.8 (3-14) % Eos % (Auto) 3.0 (2-4) % Baso % (Auto) 0.3 (0-2) % Neut # (Auto) 5200 (2337-5639) /uL Lymph # (Auto) 1400 (4429-8709) /uL [place] # (Auto) 900 (0-900) /uL Eos # (Auto) 200 (0-450) /uL Baso # (Auto) 0 (0-100) /uL Sodium 137 (137-145) mmol/L Potassium 4.3 (3.4-5.1) mmol/L Chloride 103 (98-107) mmol/L Carbon Dioxide 27 (22-32) mmol/L BUN 25 H (9-20) mg/dL Creatinine 1.25 (0.66-1.25) mg/dL Estimated GFR > 60.0 (>60) mL/min BUN/Creatinine Ratio 20.0 (6-22) Glucose 105 H (70-100) mg/dL Calcium 9.7 (8.4-10.2) mg/dL Imaging Data CT scan - abdomen/pelvis: Radiologist's Impression: Marvin Seth T 45 M 1975 [facility] [place] [id number] Scan ReportSigned Patient: Marvin Seth TMR#: [id number]: 1975Acct:[id number]/Sex: 45 / MDate of Service: 01/02/21Loc: EDAccession Number: [id number] Procedure: CT kidney ureter bladder (KUB) Ordering Provider: Vera Pittman D.O. PROCEDURE: CT KIDNEY URETER BLADDER (KUB) INDICATIONS: recent stents removed (per payal) TECHNIQUE: Noncontrast 5 mm thick sections acquired from the diaphragms to the symphysis. 5 mm thick coronal and sagittal reformats were then performed. For radiation dose reduction, the following was used: automated exposure control, adjustment of mA and/or kV according to patient size. COMPARISON: [facility], CT, CT KIDNEY URETER BLADDER (KUB), 11/30/2020, 13:44. [facility], CR, XR KUB, 12/12/2020, 11:18. FINDINGS: Image quality: Excellent. Lung bases: Lung bases are clear. Heart size is normal. Urinary system: There is a series of stones seen obstructing within the distal left ureter, with the largest stone fragment measuring approximately 6 mm, although with the stone fragments spanning 2.5 cm craniocaudal. There is associated mild to moderate left-sided hydroureter and hydronephrosis. Mild left perinephric fat stranding can also be seen. Within the left kidney, nonobstructing stone fragments are seen, which measure up to 1 cm. No definite stone fragments are seen on the right side. No right-sided hydronephrosis can be seen. Both kidneys are normal in size. Both ureters appear non-dilated throughout their expected courses. Bladder wall thickness is normal; no calcified bladder stones. Other solid organs: Liver is normal in size. Gallbladder wall is not thickened. Pancreas is normal in contours. Spleen is normal in size. No adrenal nodules. Peritoneum and bowel: Unenhanced bowel loops demonstrate normal wall thickness and caliber. No free fluid or air. A normal appendix is incidentally noted. Colonic diverticulosis is seen, without findings of active diverticulitis. Nodes and vessels: No retroperitoneal or mesenteric adenopathy by size criteria. Aorta and inferior vena cava are normal in caliber. Abdominal wall: No ventral hernias. Pelvis: No free pelvic fluid. No enlarged inguinal or pelvic lymph nodes are seen. There is a fat-containing left inguinal hernia seen. Bones: No suspicious bony lesions. No vertebral body compression fractures. IMPRESSION: Obstructing stone fragments seen within the distal left ureter, with associated left-sided hydroureter, hydronephrosis, and perinephric fat stranding . Nonobstructing left-sided kidney stones are also seen. Incidental note is made of: Normal appendix Diverticulosis, without active diverticulitis Fat containing left inguinal hernia Dictated by: Shant Patiño M.D. on 01/02/2021 at 16:02 Approved by: Shant Patiño M.D. on 01/02/2021 at 16:06 [facility] Narrative Medical decision making narrative: Patient with known stones and recent stent removal returns to hospital with severe left lower quadrant pain. His urologist is aware and actually sent him here. Pain eventually controlled with the above-stated therapies, labs reviewed and CT demonstrates expected findings. Follow-up likely to happen tomorrow, return precautions given and questions a nswered to his apparent satisfaction Discharge Plan Departure Patient Disposition: Home Clinical Impression: Left nephrolithiasis Instructions: Kidney Stones -- Adult Activity Restrictions/Additional Instructions: *You have been diagnosed with [left flank and groin pain from kidney stone] *What to do: *Take medications as directed * follow-up closely with Dr. Johnston, he stated he intends to call you tomorrow. He also wants you to not eat or drink anything after midnight in the event your symptoms return and you need a visit to the operating room *Return to ER if you should have any new, worsening or concerning symptoms Prescriptions: New tramadol [Ultram] 50 mg tablet 50 mg PO Q6H PRN (Reason: pain) Qty: 10 RF: 0 No Action hydrocodone-acetaminophen 5-325 mg tablet 1 tab PO Q6H PRN (Reason: pain) Qty: 15 RF: 0 albuterol sulfate 90 mcg/actuation HFA aerosol inhaler 2 puff inhalation Q6H PRN (Reason: shortness of breath or wheezing) Qty: 6.7 RF: 11 oxycodone 5 mg tablet 5 mg PO Q4H PRN (Reason: pain) Qty: 20 RF: 0 prochlorperazine maleate [Compazine] 10 mg tablet 10 mg PO Q6H PRN (Reason: nausea and vomiting) Qty: 10 RF: 0 tamsulosin [Flomax] 0.4 mg capsule 0.4 mg PO BEDTIME Qty: 14 RF: 0 oxycodone 5 mg tablet 5 mg PO Q4H PRN (Reason: pain) Qty: 30 RF: 0 Referrals: Collins Fox MD [Primary Care Provider] - Carl Johnston MD [Physician] -
[2021-01-02] MEDS: TRAMADOL 50 MG PREPACK 1 BOTTLE MISC (22:27)
== END 2021-01-02 22:28 | disposition home or self-care (01) ==
PROVIDERS: Emergency Provider Emergency Medicine; PCP Student in an Organized Health Care Education/Training Program; Referring Provider Specialist
DX: N20.0 Calculus of kidney (principal)
CPT/HCPCS: 36415; 74176; 80048; 85025; 96365; 96372; 96375; 99284; J1170; J1885; J2405

== ENCOUNTER 2021-01-24 15:02 | Emergency (ER) | payer OTHER, MEDICAID, SELFPAY ==
[2021-01-24 15:02] VITALS: BP 149/93; PULSE 75; RESP 15; TEMP 36.6; O2SAT 100; BMI 27.7
[2021-01-24] MEDS: FLUORESCEIN 1 MG STRIP EYE-LEFT (15:25)
[2021-01-24] MEDS: PROPARACAINE 0.5% OPHTH SOL 1 DROPS EYE-LEFT (15:25)
[2021-01-24] MEDS: TET,DIPH,PERTUSS(ACELL),VAC/PF 0.5 ML SYRINGE IM (15:26)
--- NOTE | 2021-01-24 16:01 | ED_ITS ---
HPI - Eye Problem General Chief complaint: Eye Problems Stated complaint: possible FB in left eye Time Seen by Provider: 01/24/21 15:10 Source: patient Mode of arrival: Ambulatory Limitations: no limitations History of Present Illness HPI Narrative: 45-year-old male daily smoker with history of kidney stones presents with a chief complaint of gradually worsening left eye trouble. He states he had some issues getting his contact in this morning and of not putting it in his eye. He felt okay in the morning but over the course of the day had increasing discomfort with some redness and watering and pain along with blurring. He denies any specific injury, has not been working with metallic foreign bodies or UV light. He states his tetanus is not current. He thinks his pain is worse with bright lights and improves in a dark room. He used an known over the counter drop at a drug store prior to his arrival MD chief complaint: eye pain, eye redness and vision change Onset (ago): hour(s) Onset description: gradual Duration: progressively worsening Location: left eye Eye Symptoms: burning, redness, pain and foreign body sensation Severity: moderate If Pain, Quality: aching Related Data Patient tetanus UTD: No Previous Rx's Medication Instructions Recorded prochlorperazine maleate 10 mg PO Q6H PRN #10 tab 11/06/20 [Compazine] albuterol sulfate 90 mcg/actuation 2 puff INHALATION Q6H PRN #6.7 g 12/03/20 aerosol inhaler hydrocodone 5 mg-acetaminophen 325 1 tab PO Q6H PRN #15 tab 12/11/20 mg tablet tamsulosin 0.4 mg capsule 0.4 mg PO BEDTIME #14 cap 12/13/20 oxycodone 5 mg PO Q4H PRN #20 tab 12/28/20 oxycodone 5 mg tablet 5 mg PO Q4H PRN #30 tab 01/02/21 tramadol [Ultram] 50 mg PO Q6H PRN #10 tab 01/02/21 tobramycin 1 drp EYE-LEFT Q2H #5 ml 01/24/21 Allergies Allergy/AdvReac Type Severity Reaction Status Date / Time morphine Allergy Intermediate Vomiting Verified 01/24/21 15:08 Review of Systems Constitutional Constitutional: Denies chills, Denies fatigue, Denies fever(s), Denies frequent falls, Denies lethargy and Denies weakness Eyes Eyes: Reports change in vision, Denies eye discharge, Reports irritation and Denies loss of vision ENT Ears, Nose, Mouth, and Throat: Denies change in voice, Denies dizziness, Denies neck pain, Denies sore throat and Denies throat swelling Cardiovascular Cardiovascular: Denies chest pain, Denies irregular heart rhythm, Denies lightheadedness, Denies palpitations, Denies dyspnea, Denies dyspnea on exertion and Denies orthopnea Respiratory Respiratory: Denies cough, Denies dyspnea, Denies dyspnea on exertion and Denies wheezing Gastrointestinal Gastrointestinal: Denies abdominal pain, Denies change in bowel habits, Denies diarrhea, Denies nausea and Denies vomiting Musculoskeletal Musculoskeletal: Denies neck pain and Denies numbness Integumentary/Breasts Skin/Breast: Denies pruritus, Denies erythema, Denies rash and Denies wounds Neurologic Neurologic: Denies behavioral changes, Denies confusion, Denies dizziness, Denies frequent falls, Denies loss of vision, Denies numbness and Denies weakness Psychiatric Psychiatric: Denies anxiety, Denies behavioral changes, Denies confusion, Denies depression, Denies homicidal ideation and Denies suicidal ideation Endocrine Endocrine: Denies fatigue, Denies flushing and Denies palpitations Hematologic/Lymphatic Hematologic/Lymphatic: Denies easy bruising Allergic/Immunologic Allergic/Immunologic: Denies urticaria, Denies throat swelling and Denies wheezing Patient History Medical History Arthritis Asthma Funes sarcoma History of nephrolithiasis Kidney stones Left nephrolithiasis Ureteral stent retained Surgical History H/O lithotripsy Social History marital status: number of children: 3 household members: significant other Smoking Status: Current every day smoker alcohol intake: current caffeine: Yes Smoking Status: Current every day smoker alcohol intake frequency: 0-2 drinks per day Alcohol type: hard liquor Substance Use Type: marijuana Exam Narrative Exam Narrative: GEN: AOx3 and in mild distress EYES: Left pupil larger than right, but both react to light. NO change in discomfort with light. FB noted in L eye, no dye uptake. Pain completely resolved with Proparacaine. OS pressure 19mmHg. Extraoccular muscles are intact bilaterally. Mild injection CHEST: Lungs are clear to auscultation bilaterally and free of wheezes, rales, or rhonchi. Heart rate is regular rhythm, there are no murmurs, clicks, rubs, or gallops. There is no chest wall tenderness. ABD: Abdomen is soft and nontender. There is no guarding or rebound. Bowel sounds are normal in all 4 quadrants. There is no mass or organomegaly. EXT: Full painless ROM of all extremities with no loss of sensation or strength. SKIN: Warm, pink, and dry. No erythema or rash Initial Vital Signs Initial Vital Signs: Vital Signs Temperature 97.9 F 01/24/21 15:02 Pulse Rate 75 01/24/21 15:02 Respiratory Rate 15 01/24/21 15:02 Blood Pressure 149/93 H 01/24/21 15:02 Pulse Oximetry 100 01/24/21 15:02 Course Orders Ordered: Discontinued Medications Diphtheria/Tetanus/Acell Pertussis (Tet,Diph,Pertuss(Acell),Vac/Pf 0.5 Ml Syringe) 0.5 ml IM .ONCE ONE Stop: 01/24/21 15:08 Last Admin: 01/24/21 15:26 Dose: 0.5 ml Documented by: HENRI Fluorescein Sodium (Fluorescein 1 Mg Strip) 1 mg EYE-LEFT NOW ONE Stop: 01/24/21 15:08 Last Admin: 01/24/21 15:25 Dose: 1 mg Documented by: HENRI Fluorescein Sodium (Fluorescein 1 Mg Strip) 1 mg EYE-LEFT NOW ONE Stop: 01/24/21 15:30 Last Admin: 01/24/21 15:36 Dose: Not Given Documented by: HENRI Proparacaine HCl (Proparacaine 0.5% Ophth [place]) 1 drops EYE-LEFT NOW ONE Stop: 01/24/21 15:08 Last Admin: 01/24/21 15:25 Dose: 1 drop Documented by: HENRI Proparacaine HCl (Proparacaine 0.5% Ophth [place]) 1 drops EYE-LEFT NOW ONE Stop: 01/24/21 15:30 Last Admin: 01/24/21 15:35 Dose: Not Given Documented by: HENRI Reevaluation(s) Reevaluation #1: discussed with Dr. Reed (ophtho). Recommends use of contact as bandage along with ABX drops and close follow up with his housekeeping worker Vital Signs Vital signs: Vital Signs - 8 hr 01/24/21 15:02 Temperature 97.9 F Pulse Rate 75 Respiratory Rate 15 Blood Pressure 149/93 H Pulse Oximetry 100 Discharge Plan Departure Patient Disposition: Home Clinical Impression: Acute foreign body of left eye Qualifiers: Encounter type: initial encounter Qualified Code(s): T15.92XA - Foreign body on external eye, part unspecified, left eye, initial encounter Instructions: Conjunctivitis Activity Restrictions/Additional Instructions: *You have been diagnosed with [left eye redness and foreign body sensation with foreign body removal.] *What to do: *Take medications as directed: I have sent an antibiotic drop to [email or web address] in [place] at your request * I did discuss your case with our on-call product safety tester who was comfortable with You putting the contact back in your eye and using drops as prescribed over the course of the night. Your discomfort should improve but with ongoing symptoms into tomorrow he will need to follow-up with your housekeeping worker or product safety tester. I have included her contact information but it would be advisable to follow-up with your doctor if able *Return to ER if you should have any new, worsening or concerning symptoms Prescriptions: New tobramycin 0.3 % drops 1 drp EYE-LEFT Q2H Qty: 5 RF: 0 No Action hydrocodone-acetaminophen 5-325 mg tablet 1 tab PO Q6H PRN (Reason: pain) Qty: 15 RF: 0 albuterol sulfate 90 mcg/actuation HFA aerosol inhaler 2 puff inhalation Q6H PRN (Reason: shortness of breath or wheezing) Qty: 6.7 RF: 11 oxycodone 5 mg tablet 5 mg PO Q4H PRN (Reason: pain) Qty: 20 RF: 0 prochlorperazine maleate [Compazine] 10 mg tablet 10 mg PO Q6H PRN (Reason: nausea and vomiting) Qty: 10 RF: 0 tramadol [Ultram] 50 mg tablet 50 mg PO Q6H PRN (Reason: pain) Qty: 10 RF: 0 tamsulosin [Flomax] 0.4 mg capsule 0.4 mg PO BEDTIME Qty: 14 RF: 0 oxycodone 5 mg tablet 5 mg PO Q4H PRN (Reason: pain) Qty: 30 RF: 0 Referrals: Collins Fox MD [Primary Care Provider] -
[2021-01-24 16:42] VITALS: BP 122/70; PULSE 56; RESP 14; O2SAT 97
== END 2021-01-24 16:43 | disposition home or self-care (01) ==
PROVIDERS: Emergency Provider Emergency Medicine; PCP Student in an Organized Health Care Education/Training Program
DX: T15.92XA Foreign body on external eye, part unspecified, left eye, initial encounter (principal); Z23 Encounter for immunization
CPT/HCPCS: 90471; 99283; 90715

== ENCOUNTER → 2021-02-25 10:22 | Outpatient (CLI) | payer OTHER, MEDICAID, SELFPAY ==
--- NOTE | 2021-02-25 | DI.RAD.S_ITS ---
PROCEDURE: XR KUB INDICATIONS: KUB TECHNIQUE: One view of the abdomen acquired. COMPARISON: [facility], CT, CT KIDNEY URETER BLADDER (KUB), 11/30/2020, 13:44. [facility], CR, XR KUB, 12/12/2020, 11:18. [facility], CT, CT KIDNEY URETER BLADDER (KUB), 01/02/2021, 16:52. FINDINGS: Surgical changes and devices: None. Bowel: Bowel gas pattern is normal. Soft tissues: No suspicious abdominal calcifications. Visualized solid organ contours appear normal in size. Three right-sided mid pelvic phleboliths and to left-sided mid pelvic phleboliths are noted, no distal ureteral stones are seen, and no remaining calculus is identified over the expected region of the left Bones: No suspicious bony lesions. IMPRESSION: No left-sided ureteral stones or left-sided renal collecting system region stones identified. Dictated by: Jimbo La M.D. on 03/01/2021 at 8:46 Approved by: Jimbo La M.D. on 03/01/2021 at 8:51
[2021-02-25 11:55] LABS: Uric Acid 5.5 mg/dL (3.5-8.5)
[2021-02-26 05:37] LABS: Parathyroid Hormone Int 56 pg/mL (15-65)
== END ==
PROVIDERS: PCP Student in an Organized Health Care Education/Training Program; Referring Provider Specialist; Visit Provider Specialist
DX: N20.0 Calculus of kidney (principal)
CPT/HCPCS: 36415; 74018; 82310; 83970; 84550

== ENCOUNTER → 2021-04-01 14:01 | Outpatient (CLI) | payer OTHER, MEDICAID, SELFPAY ==
[2021-04-01 15:41] LABS: Urine N gonorrhoeae NOT DETECTED
[2021-04-01 15:42] LABS: Urine Chlamydia NOT DETECTED
[2021-04-01 16:00] LABS: Hepatitis B Surface Antigen NEGATIVE s/c (NEGATIVE)
[2021-04-01 16:17] LABS: HIV 1 & 2 Ab/Ag 4th Gen Combo NEGATIVE (NEGATIVE); Hep C Virus Ab w/Reflex Quant NEGATIVE s/c (NEGATIVE)
[2021-04-02 07:14] LABS: HSV Type 1 AB, IgG 3.36 index (0.00-0.90)
[2021-04-02 08:13] LABS: RPR Screen Non Reactive (Non Reactive)
== END ==
PROVIDERS: PCP Student in an Organized Health Care Education/Training Program; Referring Provider Physician Assistant; Visit Provider Physician Assistant
DX: Z11.3 Encounter for screening for infections with a predominantly sexual mode of transmission (principal)
CPT/HCPCS: 36415; 86592; 86695; 86696; 86803; 87340; 87389; 87491; 87591

== ENCOUNTER → 2021-06-01 13:18 | Outpatient (CLI) | payer OTHER, MEDICAID, SELFPAY ==
--- NOTE | 2021-06-01 13:19 | DI.RAD.S_ITS ---
PROCEDURE: XR FOOT RT MIN 3V INDICATIONS: pain TECHNIQUE: 3 views of the foot were acquired. COMPARISON: None. FINDINGS: Bones: No acute fracture or traumatic malalignment. Moderate joint space narrowing of the 1st metatarsophalangeal joint with marginal osteophyte formation. There is also a well corticated ossific body superior to the 1st metatarsophalangeal joint which may represent a loose body or fractured osteophyte. Soft tissues: No tibiotalar joint effusion. Achilles tendon appears normal. IMPRESSION: Moderate degenerate change of the 1st metatarsophalangeal joint. There is also a well small corticated ossific body superior to the 1st metatarsophalangeal joint which may represent a loose body or fractured osteophyte. Dictated by: Bonilla Rey M.D. on 06/01/2021 at 12:36 Approved by: Bonilla Rey M.D. on 06/01/2021 at 12:55
--- NOTE | 2021-06-01 13:19 | DI.RAD.S_ITS ---
PROCEDURE: XR TIBIA FUBULA RT 2V INDICATIONS: pain TECHNIQUE: 2 views of the tibia and fibula were acquired. COMPARISON: None. FINDINGS: Bones: No acute fractures or dislocations. No evident cortical thickening to suggest stress changes. Rounded small well corticated ossific body adjacent to the medial proximal tibia may reflect sequela of remote trauma. No suspicious bony lesions. Soft tissues: No suspicious soft tissue calcifications or masses. IMPRESSION: No acute bony abnormality. Dictated by: Bonilla Rey M.D. on 06/01/2021 at 12:55 Approved by: Bonilla Rey M.D. on 06/01/2021 at 12:57
== END ==
PROVIDERS: PCP Student in an Organized Health Care Education/Training Program; Referring Provider Nurse Practitioner; Visit Provider Nurse Practitioner
DX: M25.561 Pain in right knee (principal); M25.571 Pain in right ankle and joints of right foot
CPT/HCPCS: 73590; 73630

== ENCOUNTER 2021-10-02 10:05 | Emergency (ER) | payer OTHER, MEDICAID, SELFPAY ==
[2021-10-02] VITALS (7 sets, daily range): BP systolic 130–139; BP diastolic 75–84; PULSE 66–78; RESP 17; TEMP 36.8; O2SAT 95–98; BMI 26.4
--- NOTE | 2021-10-02 10:25 | ED.GENADULT ---
HPI - General Adult General Chief complaint: Fever Stated complaint: Shaky, left hand numb, locked jaw Time Seen by Provider: 10/02/21 10:21 Source: patient Mode of arrival: Ambulatory History of Present Illness HPI narrative: 46-year-old gentleman with mild intermittent asthma, history of opiate use disorder currently opioid free, history of alcohol use disorder currently trying to cut back and typically notices some withdrawal symptoms in the late afternoons presents with increased anxiety, tremor in both hands increasing numbness left greater than right hand and perioral numbness some mild carpal pedal spasm. Four days ago spent [place] with his son who was COVID positive. He himself is vaccinated and boosted. He describes no fevers but has had some mild GI distress and general malaise. He describes no specific cough, runny nose, with loss of taste or smell, mild headache significantly increased anxiety that he attributes to work stresses and trying to cut back on alcohol use. He is having no palpitations or over chest pain. No lower extremity edema. Related Data Previous Rx's Medication Instructions Recorded albuterol sulfate 90 mcg/actuation 2 puff INHALATION Q6H PRN #6.7 g 12/03/20 aerosol inhaler naproxen 500 mg tablet 500 mg PO BID #14 tab 07/11/21 lorazepam 0.5 mg tablet (Ativan) 0.5 mg PO BID PRN #14 tab 10/02/21 Allergies Allergy/AdvReac Type Severity Reaction Status Date / Time morphine Allergy Intermediate Vomiting Verified 10/02/21 10:19 Review of Systems Review of Systems Narrative: Remainder of complete review of systems is otherwise unremarkable except for that included in the HPI. Patient History Medical History Arthritis Asthma Funes sarcoma History of nephrolithiasis Kidney stones Left nephrolithiasis Sterilization consult Ureteral stent retained Surgical History H/O lithotripsy Social History marital status: number of children: 3 household members: significant other Smoking Status: Current every day smoker alcohol intake: current caffeine: Yes Smoking Status: Current every day smoker alcohol intake frequency: 3 or more drinks per day Alcohol type: hard liquor Substance Use Type: marijuana Exam Narrative Exam Narrative: General: Healthy appearing, mildly anxious Able to give a complete and coherent history. Well-nourished well-developed HEENT: Moist mucous membranes, normal sclera with reactive pupils, Neck: No JVD, supple Respiratory: Lungs are clear to auscultation, no wheezing no rales no rhonchi. Full and symmetrical air movement Cardiac: Regular rate and rhythm no murmurs no bruits Abdomen: Soft, nontender, good bowel tones, no flank pain Skin: Warm and dry, no rashes Neurologic: Tremor in both hands left greater than right, describes decreased sensation in the entire right arm with no motor abnormalities. Extremities: No trauma, well perfused Psych: Cooperative, appropriate insight and affect, focused Initial Vital Signs Initial Vital Signs: Vital Signs Temperature 98.2 F 10/02/21 10:15 Pulse Rate 78 10/02/21 10:15 Respiratory Rate 17 10/02/21 10:15 Blood Pressure 139/84 10/02/21 10:15 Pulse Oximetry 98 10/02/21 10:15 Course Orders Ordered: ED Orders 10/02/21 10:19 COVID19 -Nasal swab/Pre-Proc Stat 10/02/21 10:45 Complete Blood Count AUTO DIFF Stat Comprehensive Metabolic Panel Stat ETOH [Ethanol (ETOH)] Stat Discontinued Medications Sodium Chloride (Normal Saline 0.9%) 1,000 mls @ 1,000 mls/hr IV BOLUS ONE Stop: 10/02/21 11:26 Last Admin: 10/02/21 10:56 Dose: 1,000 mls/hr Documented by: BAL Lorazepam (Lorazepam 2 Mg/Ml Inj) 1 mg IV NOW ONE Stop: 10/02/21 10:40 Last Admin: 10/02/21 10:56 Dose: 1 mg Documented by: BAL Vital Signs Vital signs: Vital Signs - 8 hr 10/02/21 10:15 10/02/21 10:44 10/02/21 11:00 Temperature 98.2 F Pulse Rate 78 74 66 Respiratory Rate 17 Blood Pressure 139/84 Pulse Oximetry 98 98 97 10/02/21 11:30 10/02/21 12:00 10/02/21 12:30 Temperature Pulse Rate 66 70 70 Respiratory Rate Blood Pressure Pulse Oximetry 95 95 95 10/02/21 12:42 Temperature Pulse Rate Respiratory Rate Blood Pressure 130/75 Pulse Oximetry Medical Decision Making Lab Data Result diagrams: 10/02/21 10:45 10/02/21 10:45 Labs: Lab Results 10/02/21 10/02/21 10/02/21 Range/Units 10:19 10:45 10:45 WBC 6.1 (4.5-11.0) X10^3/uL RBC 4.96 (4.5-5.9) X10^6/uL Hgb 16.8 (13.5-17.5) g/dL Hct 48.2 (41-53) % MCV 97.3 (80-100) fL MCH 33.9 (26-34) PG MCHC 34.8 (30-36) % RDW 14.2 (11.6-14.8) % Plt Count 206 (150-400) X10^3/uL Neut % (Auto) 71.1 (50-75) % Lymph % (Auto) 20.4 L (25-40) % [place] % (Auto) 7.4 (3-14) % Eos % (Auto) 0.7 L (2-4) % Baso % (Auto) 0.4 (0-2) % Neut # (Auto) 4400 (8149-2182) /uL Lymph # (Auto) 1200 (8344-2505) /uL [place] # (Auto) 500 (0-900) /uL Eos # (Auto) 0 (0-450) /uL Baso # (Auto) 0 (0-100) /uL Sodium 136 L (137-145) mmol/L Potassium 4.4 (3.4-5.1) mmol/L Chloride 102 (98-107) mmol/L Carbon Dioxide 20 L (22-32) mmol/L BUN 17 (9-20) mg/dL Creatinine 1.20 (0.66-1.25) mg/dL Estimated GFR > 60.0 (>60) mL/min BUN/Creatinine Ratio 14.2 (6-22) Glucose 77 (70-100) mg/dL Calcium 10.2 (8.4-10.2) mg/dL Total Bilirubin 1.1 (0.2-1.3) mg/dL AST 54 (17-59) IU/L ALT 53 H (<50) IU/L Alkaline Phosphatase 73 (38-126) U/L Total Protein 8.2 (6.3-8.2) g/dL Albumin 5.2 H (3.5-5.0) g/dL Globulin 3.0 (1.7-4.1) g/dL Albumin/Globulin Ratio 1.7 (1.0-2.8) Ethyl Alcohol < 10 ( - 10) mg/dL SARS-CoV-2 (PCR) Negative (Negative) MDM Narrative Medical decision making narrative: 46-year-old gentleman presents with increased anxiety signs of hyperventilation with perioral numbness numbness in the fingers in complaints of muscle spasms. COVID test is negative workup is negative. He had a discussion regarding his alcohol intake. He has been significantly more stressed with work and home issues recently and has been drinking more. Discussed his elevated ALT and the importance of avoiding alcohol to avoid dealing with stressful situations. He does have a primary care doctor and can follow-up. Discussed perhaps using antidepressants as the a better long-term solution for him. He was not interested in considering that now but will discuss with his primary care physician. In the meantime will send him home with a small prescription 4.5 mg of Ativan to use times of extreme stress to avoid panic attack which is what I think he was experiencing this morning. There is no evidence of heart attack, sepsis, COVID, stroke or other reason for hospitalization at this time. Questions are answered and patient is safe for home discharge Discharge Plan Departure Patient Disposition: Home Clinical Impression: Panic attack, Hyperventilation, Acute situational disturbance, Alcohol use disorder Instructions: DI for Panic Disorder Activity Restrictions/Additional Instructions: Thank you for coming in today You do not have COVID. Your blood work was reassuring. You had 1 liver enzyme that was minimally elevated that we frequently see in people who were drinking too much and causing damage to the liver. You responded nicely to fluids in a small dose of IV Ativan in helping you calm your immediate reaction I would encourage you to use some of the breathing techniques that you have been using for your yoga practice in rig wrapping herself when stress levels are climbing. I would also encourage you to talk to her primary care doctor to talk about additional medication that can help with stress. I very much want to emphasize that using alcohol in this situation will cause more problems than it is helping. I would strongly encourage you to avoid alcohol completely. As a bridge if your having severe stress/panic symptoms, I have given you a prescription for 0.5 mg of Ativan, a benzodiazepine. This covers up the symptoms and helps read ground you but it does not actually treat the underlying reason for the panic attacks. This prescription was electronically transmitted to [facility] in [place] If you have worsening symptoms or new findings, please return to the ER I wish you the best Prescriptions: New lorazepam [Ativan] 0.5 mg tablet 0.5 mg PO BID PRN (Reason: anxiety) Qty: 14 0RF No Action naproxen 500 mg tablet 500 mg PO BID Qty: 14 0RF albuterol sulfate 90 mcg/actuation HFA aerosol inhaler 2 puff inhalation Q6H PRN (Reason: shortness of breath or wheezing) Qty: 6.7 11RF Referrals: Collins Fox MD [Primary Care Provider] -
[2021-10-02 10:55] LABS: Add Manual Diff / Slide Review NO; Basophils Absolute Auto 0 /uL (0-100); Basophils Percent Auto 0.4 % (0-2); Eosinophils Absolute Auto 0 /uL (0-450); Eosinophils Percent Auto 0.7 % (2-4); Hematocrit 48.2 % (41-53); Hemoglobin 16.8 g/dL (13.5-17.5); Lymphocytes Absolute Auto 1200 /uL (1100-4500); Lymphocytes Percent Auto 20.4 % (25-40); Mean Corpuscular HGB Conc 34.8 % (30-36); Mean Corpuscular Hemoglobin 33.9 PG (26-34); Mean Corpuscular Volume 97.3 fL (80-100); Monocytes Absolute Auto 500 /uL (0-900); Monocytes Percent Auto 7.4 % (3-14); Neutrophils Absolute Auto 4400 /uL (1500-7000); Neutrophils Percent Auto 71.1 % (50-75); Platelet Count 206 X10^3/uL (150-400); Red Blood Cell Count 4.96 X10^6/uL (4.5-5.9); Red Cell Distribution Width 14.2 % (11.6-14.8); White Blood Cell Count 6.1 X10^3/uL (4.5-11.0)
[2021-10-02] MEDS: SODIUM CHLORIDE 0.9% 1,000 ML 1000 ML IV (10:56)
[2021-10-02] MEDS: LORazepam 2 MG/ML INJ 1 MG IV (10:56)
[2021-10-02 11:10] LABS: Alanine Aminotransferase 53 IU/L (<50); Albumin 5.2 g/dL (3.5-5.0); Albumin Globulin Ratio 1.7 (1.0-2.8); Alkaline Phosphatase 73 U/L (38-126); Aspartate Aminotransferase 54 IU/L (17-59); BUN Creatinine Ratio 14.2 (6-22); Bilirubin Total 1.1 mg/dL (0.2-1.3); Blood Urea Nitrogen 17 mg/dL (9-20); Calcium 10.2 mg/dL (8.4-10.2); Carbon Dioxide 20 mmol/L (22-32); Chloride 102 mmol/L (98-107); Estimated Glomerular Filt Rate > 60.0 mL/min (>60); Ethanol (ETOH) < 10 mg/dL; Glucose 77 mg/dL (70-100); HEMOLYSIS < 15 (0-50); Potassium 4.4 mmol/L (3.4-5.1); Sodium 136 mmol/L (137-145); Total Protein 8.2 g/dL (6.3-8.2)
[2021-10-02 11:11] LABS: COVID19 -Nasal RAPID Negative (Negative)
== END 2021-10-02 12:54 | disposition home or self-care (01) ==
PROVIDERS: Emergency Provider Emergency Medicine; PCP Student in an Organized Health Care Education/Training Program
DX: F41.0 Panic disorder [episodic paroxysmal anxiety] (principal); F43.0 Acute stress reaction; Z72.89 Other problems related to lifestyle; Z20.822 Contact with and (suspected) exposure to COVID-19
CPT/HCPCS: 36415; 80053; 80320; 85025; 87635; 96361; 96374; 99284; C9803; J2060

== ENCOUNTER 2022-02-03 18:52 | Emergency (ER) | payer OTHER, MEDICAID, SELFPAY ==
[2022-02-03 18:58] VITALS: BP 140/97; PULSE 79; RESP 16; TEMP 36.7; O2SAT 100; BMI 29.7
--- NOTE | 2022-02-03 19:03 | DI.RAD.S_ITS ---
PROCEDURE: XR FOREARM RT 2V INDICATIONS: fall, forarm deformity TECHNIQUE: 2 views of the forearm were acquired. COMPARISON: None. FINDINGS: Bones: No fractures or dislocations. No suspicious bony lesions. Soft tissues: No suspicious soft tissue calcifications or masses. IMPRESSION: No evidence acute bony abnormality of the right forearm. If clinical suspicion and/or symptoms persist, further assessment with repeat plain films, or advanced imaging (e.g., CT, MRI, or bone scan) may be helpful for further assessment. Dictated by: Samson Owens M.D. on 02/03/2022 at 20:01 Approved by: Samson Owens M.D. on 02/03/2022 at 20:02
--- NOTE | 2022-02-03 21:06 | ED.UPPEXIN ---
HPI - Extremity Injury (Upper) General Chief Complaint: Extremity Injury, Upper Stated Complaint: RIGHT FOREARM INJURY Time Seen by Provider: 02/03/22 21:03 Source: patient Mode of arrival: Ambulatory History of Present Illness HPI narrative: [age] year male daily smoker with noncontributory medical history presents with a chief complaint of an accidental fall resulting in an injury to his right forearm. He was working, using proper safety equipment on a metal roof when he slipped to the side and landed on his forearm on 1 of the elevated ridges on the roof. He did not fall off the roof. He has pain over the midline of his forearm with a hematoma. There is a very superficial abrasion, not deep enough to be repaired. He denies any numbness, tingling or weakness. He has no pain in wrist or shoulder. He denies other injuries such as head neck or back. Related Data Previous Rx's Medication Instructions Recorded albuterol sulfate 90 mcg/actuation 2 puff INHALATION Q6H PRN #6.7 g 12/03/20 aerosol inhaler naproxen 500 mg tablet 500 mg PO BID #14 tab 07/11/21 Adderall XR 15 mg capsule,extended 15 mg PO DAILY #30 cap NS 01/29/22 release (dextroamphetamine-amphetamine) dextroamphetamine-amphetamine 5 mg 5 mg PO QNOON #7 tab 02/01/22 tablet (Adderall) Allergies Allergy/AdvReac Type Severity Reaction Status Date / Time morphine Allergy Intermediate Vomiting Verified 10/10/21 14:58 Review of Systems Review of Systems Narrative: GENERAL: Denies chills, fatigue, malaise, fever, sweats. HEENT: Denies sinus pain, ear pain, sore throat, difficulty swallowing, dizziness. RESPIRATORY: Denies dyspnea, cough, wheezing, hemoptysis, sputum. CARDIOVASCULAR: Denies chest pain, palpitations, orthopnea, edema, GASTROINTESTINAL: Denies nausea, vomiting, abdominal pain, diarrhea, constipation, melena. : Denies dysuria, frequency, incontinence, hematuria, urinary retention. MUSCULOSKELETAL: See HPI SKIN: Denies rash, skin lesions, or other NEUROLOGIC: Denies weakness, headache, numbness, change in speech, confusion, seizures, incoordination. PSYCHIATRIC: No concerning psychosocial issues. 12 point review of systems is negative except for those stated above Patient History Medical History Arthritis Asthma Funes sarcoma Left nephrolithiasis Ureteral stent retained Surgical History H/O lithotripsy Social History marital status: number of children: 3 household members: significant other Smoking Status: Current every day smoker alcohol intake: current caffeine: Yes Smoking Status: Current every day smoker alcohol intake frequency: 0-2 drinks per day Alcohol type: hard liquor Substance Use Type: marijuana Exam Narrative Exam Narrative: GEN: AOx3 and in mild distress EYES: Pupils are equal, round, and reactive to light and accommodation. Extraoccular muscles are intact bilaterally. There is no subconjunctival hemorrhage or exudate. CHEST: Lungs are clear to auscultation bilaterally and free of wheezes, rales, or rhonchi. Heart rate is regular rhythm, there are no murmurs, clicks, rubs, or gallops. There is no chest wall tenderness. ABD: Abdomen is soft and nontender. There is no guarding or rebound. Bowel sounds are normal in all 4 quadrants. There is no mass or organomegaly. EXT: Full but painful range of motion of right forearm. No bony tenderness of wrist, elbow or shoulder. He is tender overlying the mid radius with an associated overlying 2-3 cm hematoma SKIN: Warm, pink, and dry. No erythema or rash Initial Vital Signs Initial Vital Signs: Vital Signs Temperature 98.1 F 02/03/22 18:58 Pulse Rate 79 02/03/22 18:58 Respiratory Rate 16 02/03/22 18:58 Blood Pressure 140/97 H 02/03/22 18:58 Pulse Oximetry 100 02/03/22 18:58 Course Orders Ordered: ED Orders 02/03/22 19:03 XR forearm RT 2V Stat Vital Signs Vital signs: Vital Signs - 8 hr 02/03/22 18:58 Temperature 98.1 F Pulse Rate 79 Respiratory Rate 16 Blood Pressure 140/97 H Pulse Oximetry 100 MDM - Extremity Injury (Upper) Imaging Data Extremity x-ray #1: Radiologist's Impression: Launch?[address] [address] XRay Report Signed Patient: Marvin Seth MR#: [id number] : 1975 Acct:[id number] Age/Sex: 46 / M Date of Service: 02/03/22 Loc: ED Accession Number: [id number] ?? Procedure: XR forearm RT 2V Ordering Provider: Vito Carcamo D.O. PROCEDURE:? XR FOREARM RT 2V ? INDICATIONS:? fall, forarm deformity ? TECHNIQUE:? 2 views of the forearm were acquired.? ? COMPARISON:? None. ? FINDINGS:? ? Bones:? No fractures or dislocations.? No suspicious bony lesions.? ? Soft tissues:? No suspicious soft tissue calcifications or masses.? ? ? IMPRESSION:? No evidence acute bony abnormality of the right forearm. ? If clinical suspicion and/or symptoms persist, further assessment with repeat plain films, or advanced imaging (e.g., CT, MRI, or bone scan) may be helpful for further assessment. ? Dictated by: Samson Owens M.D. on 02/03/2022 at 20:01 ? ? Approved by: Samson Owens M.D. on 02/03/2022 at 20:02 ? Discharge Plan Departure Prescriptions: No Action naproxen 500 mg tablet 500 mg PO BID Qty: 14 0RF dextroamphetamine-amphetamine [Adderall] 5 mg tablet 5 mg PO QNOON Qty: 7 0RF Rx Instructions: Trial script. albuterol sulfate 90 mcg/actuation HFA aerosol inhaler 2 puff inhalation Q6H PRN (Reason: shortness of breath or wheezing) Qty: 6.7 11RF dextroamphetamine-amphetamine [Adderall XR] 15 mg capsule,extended release 24hr 15 mg PO DAILY Qty: 30 0RF Referrals: Collins Fox MD [Primary Care Provider] -
== END 2022-02-03 21:11 | disposition home or self-care (01) ==
PROVIDERS: Emergency Provider Emergency Medicine; PCP Student in an Organized Health Care Education/Training Program
DX: S50.811A Abrasion of right forearm, initial encounter (principal); F17.200 Nicotine dependence, unspecified, uncomplicated; W01.0XXA Fall on same level from slipping, tripping and stumbling without subsequent striking against object, initial encounter; Y92.89 Other specified places as the place of occurrence of the external cause; Y99.0 Civilian activity done for income or pay
CPT/HCPCS: 73090; 99281; 99283

== ENCOUNTER → 2022-03-14 08:26 | Outpatient (CLI) | payer OTHER, MEDICAID, SELFPAY ==
--- NOTE | 2022-03-14 08:32 | DI.RAD.S_ITS ---
PROCEDURE: XR KUB INDICATIONS: bilateral nephrolithiasis TECHNIQUE: One view of the abdomen acquired. COMPARISON: [facility], , XR KUB, 02/25/2021, 10:28. FINDINGS: Surgical changes and devices: None. Bowel: Bowel gas pattern is normal. Soft tissues: No suspicious abdominal calcifications. Multiple phleboliths are noted in bilateral lower pelvis. Visualized solid organ contours appear normal in size. Bones: No suspicious bony lesions. IMPRESSION: No obvious renal calcifications are seen on the current study. Phleboliths in bilateral lower pelvis. Dictated by: Jimmie Peña M.D. on 03/14/2022 at 9:26 Approved by: Jimmie Peña M.D. on 03/14/2022 at 9:27
--- NOTE | 2022-03-14 08:34 | DI.RAD.S_ITS ---
PROCEDURE: XR FINGER RT MIN 2V INDICATIONS: thumb injury TECHNIQUE: AP hand, 3 views of the 1st finger(s) acquired. COMPARISON: None. FINDINGS: Bones: No fractures or dislocations. No suspicious bony lesions. Soft tissues: No suspicious soft tissue calcifications. IMPRESSION: Unremarkable radiographic examination of right thumb. No finding to explain patient's symptoms. Dictated by: Jimmie Peña M.D. on 03/14/2022 at 9:26 Approved by: Jimmie Peña M.D. on 03/14/2022 at 9:26
== END ==
PROVIDERS: PCP Student in an Organized Health Care Education/Training Program; Referring Provider Nurse Practitioner Family; Visit Provider Nurse Practitioner Family
DX: N20.0 Calculus of kidney (principal); M79.89 Other specified soft tissue disorders; S69.91XA Unspecified injury of right wrist, hand and finger(s), initial encounter; W19.XXXA Unspecified fall, initial encounter
CPT/HCPCS: 73140; 74018

== ENCOUNTER → 2022-08-25 08:49 | Outpatient (CLI) | payer OTHER, MEDICAID, SELFPAY ==
[2022-08-25 12:09] LABS: Urine N gonorrhoeae NOT DETECTED
[2022-08-25 12:10] LABS: Urine Chlamydia NOT DETECTED
[2022-08-25 17:49] LABS: HIV 1 & 2 Ab/Ag 4th Gen Combo NEGATIVE (NEGATIVE); Hep C Virus Ab w/Reflex Quant NEGATIVE s/c (NEGATIVE)
[2022-08-27 03:36] LABS: HSV 2 IGG AB < 0.91 index (0.00-0.90); HSV1IGG 4.92 index (0.00-0.90)
[2022-08-27 07:42] LABS: RPR Screen Non Reactive (Non Reactive)
== END ==
PROVIDERS: PCP Student in an Organized Health Care Education/Training Program; Referring Provider Student in an Organized Health Care Education/Training Program; Visit Provider Student in an Organized Health Care Education/Training Program
DX: Z72.51 High risk heterosexual behavior (principal)
CPT/HCPCS: 36415; 86592; 86695; 86696; 86803; 87389; 87491; 87591